=== PATIENT | female | born 1955 | race African-American/Black ===

== ENCOUNTER 2017-05-02 11:28 | Inpatient (IN) ==
[2017-05-02 12:37] LABS: Basophils % 0.2 %; Eosinophils % 0.2 %; Hematocrit 43.8 % (35.3-44.9); Hemoglobin 13.8 g/dL (11.5-15.4); Immature Granulocytes % 0.9 % (0-4); Lymphocytes # 3.1 K/mcL (0.6-4.6); Lymphocytes % 25.5 %; Mean Corpuscular HGB Conc 31.5 g/dL (31.6-35.5); Mean Corpuscular Hemoglobin 25.4 pg (28.0-33.3); Mean Corpuscular Volume 80.5 fL (83.0-100.0); Mean Platelet Volume 12.6 fL (9.4-12.4); Monocytes # 0.7 K/mcL (0.0-1.3); Monocytes % 5.9 %; Neutrophils # 8.1 K/mcL (1.6-8.9); Platelet Count 147 K/mcL (140-400); Red Blood Count 5.44 M/mcL (3.82-4.97); Red Cell Distribution Width 14.1 % (11.5-14.5); Segmented Neutrophils % 67.3 %
[2017-05-02 12:46] LABS: Alanine Aminotransferase 19 Units/L (0-55); Albumin 3.6 g/dL (3.5-5.0); Albumin/Globulin Ratio 0.9 (1.1-2.2); Alkaline Phosphatase 101 Units/L (38-126); Aspartate Amino Transferase 16 Units/L (5-34); BUN/Creatinine Ratio 13 (6-26); Bilirubin,Direct 0.2 mg/dL (0.0-0.5); Bilirubin,Indirect 0.2 mg/dL (0.0-1.2); Bilirubin,Total 0.4 mg/dL (0.2-1.2); Blood Urea Nitrogen 9 mg/dL (7-20); Calcium 9.5 mg/dL (8.6-10.8); Carbon Dioxide 25 mEq/L (19-29); Chloride 106 mEq/L (98-109); Globulin 3.9 g/dL (2.4-3.5); Glucose 110 mg/dL (70-99); Lipase 12 Units/L (8-78); Osmolality,Calculated 289 (280-300); Sodium 140 mEq/L (136-145); Total Protein 7.5 g/dL (6.0-8.3); eGFR For African Americans > 60 (> 60); eGFR For Non-African Americans > 60 (> 60)
[2017-05-02] MEDS ORDERED: 0.9 % Sodium Chloride 1,000 ML IVC ONE ×2 (12:54→15:52)
[2017-05-02] MEDS ORDERED: Ondansetron 4 MG/2 ML VIAL IVP ONE ×3 (12:54→17:53)
[2017-05-02] MEDS ORDERED: *HR* HYDROmorphone (PF) 1 MG/ML SYRINGE IVP ONE (12:54)
--- NOTE | 2017-05-02 13:03 | Emergency Department Note ---
Disposition Clinical Impression: NSTEMI (non-ST elevated myocardial infarction) Disposition: Admitted As Inpatient Condition: Good Referrals: Andriy Campos DO [Primary Care Provider] - Forms: ED Satisfaction Letter, Work/School Release Time of Disposition: 16:46 Abdominal Pain HPI - General Chief Complaint: ED Abdominal Pain Stated Complaint: cold symptoms, abd pain Time Seen by Provider: 05/02/17 12:50 Source: patient Nursing Notes Reviewed: Yes Vital Signs Reviewed: Yes - History of Present Illness HPI Narrative: History of present illness: History 11-year-old female states she was in urgent care yesterday for upper respiratory tract infection place and antibiotics. She presents with several days of right upper quadrant pain with nausea especially after eating. Patient has her gallbladder. She has had a hysterectomy but no other intra-abdominal surgeries. Denies fever, chills, shortness breath, chest pain, dysuria, contacts, exotic food or recent travel. Patient says the pains about 7 or 8 out of 10 crampy with sharp radiates to her posterior shoulder blade causing nausea. Prior to this when she is not experiences symptoms in the past. Patient denies any recent medication addition surgery changes other than the antibiotics Pain Scale: 10 - Related Data Home Medications Medication Instructions Recorded Confirmed ALPRAZolam [Xanax 0.5 MG Tablet] 0.5 mg PO TID PRN 08/08/15 03/18/17 Atorvastatin Calcium [Lipitor] 20 mg PO QPM 08/08/15 03/18/17 Cetirizine HCl [Zyrtec] 10 mg PO QPM 08/08/15 03/18/17 Duloxetine HCl [Cymbalta] 60 mg PO QPM 08/08/15 03/18/17 Fluticasone Propionate Nasal 50 mcg NS DAILY 08/08/15 03/18/17 [Flonase] Omeprazole [PriLOSEC] 20 mg PO QAM 08/08/15 03/18/17 SUMAtriptan succinate [Imitrex] 25 mg PO Q2H PRN 08/08/15 03/18/17 Previous Rx's Medication Instructions Recorded Folic Acid 1 mg PO DAILY #30 tablet 09/05/16 Fluticasone Propionate Nasal 50 mcg NS DAILY #1 bottle 02/16/17 [Flonase] Allergies Allergy/AdvReac Type Severity Reaction Status Date / Time cefdinir [From Omnicef] Allergy Hives Verified 05/02/17 11:51 Sulfa (Sulfonamide Allergy Hives Verified 05/02/17 11:51 Antibiotics) cephlasporin Allergy Confusion Uncoded 05/02/17 11:51 All systems ED: reviewed and negative except as stated. Gastrointestinal: Reports: abdominal pain, nausea Abdominal Pain PMH - Past Medical History Medical history: Reports: GERD, hyperlipidemia Female Surgical History: Reports: hysterectomy, sinus surgery TABBER history: Reports: non-contributory Psychiatric history: Reports: anxiety, depression, panic disorder - Social History Smoking status: Current every day smoker Alcohol use: Reports: none Drug use: Reports: none Physical Exam - General Limitations: no limitations General appearance: alert, in distress - Head Head exam: atraumatic, normocephalic - Eye Eye exam: Present: normal appearance, PERRL - ENT ENT exam: normal exam, normal oropharynx - Neck Neck exam: Present: normal inspection, full ROM - Chest Chest inspection: Present: normal inspection, symmetric chest wall rise - Respiratory Respiratory exam: Present: normal lung sounds bilaterally - Cardiovascular Cardiovascular exam: Present: regular rate, normal rhythm - Abdominal Exam Abdominal exam: Present: soft, tenderness, guarding. Absent: rebound Abdominal tenderness: Present: RUQ, moderate - Extremities Exam Extremities exam: Present: normal inspection, full ROM - Expanded Lower Extremity Exam Gait: observed and normal - Back Exam Back exam: Present: normal inspection, full ROM - Neurological Exam Neurological exam: Present: alert, oriented X3, CN II-XII intact - Psychiatric Psychiatric exam: Present: normal affect, normal mood - Skin Skin exam: Present: warm Course - Reevaluation(s) Reevaluation #1: Patient's physical exam shows a patient in moderate discomfort with voluntary guarding and tenderness in the right upper quadrant. The patient's symptoms H and gender biliary colic or cholecystitis also in the differential. Patient IV analgesics and antiemetics IV fluid bolus of 1 L screening labs including blood work and urinalysis and right upper quadrant ultrasound. Disposition pending Time: 13:03 Reevaluation #2: CBC chemistry panels within normal limits patient IV normal saline 1 L bolus and IV Zofran but still is feeling poorly with abdominal pain. Ultrasound was negative for acute process patient getting a noncontrast abdominal pelvic CT troponin and EKG with another liter fluid bolus. Disposition pending Time: 15:52 Reevaluation #3: 5 by lab of a chronically elevated troponin 0.17 which is concerning is the patient's kidney function is within normal limits history of smoking cholesterol and hypertension. Patient had stress test "years ago". She has had about 3 days of right-sided chest discomfort. EKG shows sinus rhythm with no acute ischemic changes. Patient will be started on an admitted for NSTEMI and protocol. Providing 35 minutes of critical care services to this patient. Admission pending Time: 16:45 Vital Signs Temperature 97.6 F 05/02/17 11:48 Pulse Rate 84 05/02/17 11:48 Respiratory Rate 18 05/02/17 11:48 Blood Pressure 108/73 05/02/17 11:48 O2 Sat by Pulse Oximetry 97 05/02/17 11:48 Temperature 97.6 F 05/02/17 11:48 Pulse Rate 84 05/02/17 11:48 Respiratory Rate 18 05/02/17 11:48 Blood Pressure 108/73 05/02/17 11:48 O2 Sat by Pulse Oximetry 97 05/02/17 11:48 Oxygen Delivery Oxygen Delivery Room Air Abdominal Pain - Medical Records Medical records reviewed: Yes I reviewed the patient's medical records. - Lab Data Lab results reviewed: Yes I reviewed the patient's lab results. Result diagrams: 05/02/17 12:14 05/02/17 12:14 Lab Results 05/02/17 05/02/17 05/02/17 Range/Units 12:14 12:14 12:14 WBC 12.1 H (4.3-11.1) K/mcL RBC 5.44 H (3.82-4.97) M/mcL Hgb 13.8 (11.5-15.4) g/dL Hct 43.8 (35.3-44.9) % MCV 80.5 L (83.0-100.0) fL MCH 25.4 L (28.0-33.3) pg MCHC 31.5 L (31.6-35.5) g/dL RDW 14.1 (11.5-14.5) % Plt Count 147 (140-400) K/mcL MPV 12.6 H (9.4-12.4) fL Immature Gran % 0.9 (0-4) % Seg Neutrophils % 67.3 % Lymphocytes % 25.5 % Monocytes % 5.9 % Eosinophils % 0.2 % Basophils % 0.2 % Neutrophils # 8.1 (1.6-8.9) K/mcL Lymphocytes # 3.1 (0.6-4.6) K/mcL Monocytes # 0.7 (0.0-1.3) K/mcL Eosinophils # 0.0 (0.0-0.6) K/mcL Basophils # 0.0 (0.0-0.2) K/mcL Sodium 140 (136-145) mEq/L Potassium 4.0 (3.5-4.5) mEq/L Chloride 106 (98-109) mEq/L Carbon Dioxide 25 (19-29) mEq/L BUN 9 (7-20) mg/dL Creatinine 0.71 (0.57-1.11) mg/dL Est GFR ( Amer) > 60 (> 60) Est GFR (Non-Af Amer) > 60 (> 60) BUN/Creatinine Ratio 13 (6-26) Glucose 110 H (70-99) mg/dL Calculated Osmolality 289 (280-300) Calcium 9.5 (8.6-10.8) mg/dL Total Bilirubin 0.4 (0.2-1.2) mg/dL Direct Bilirubin 0.2 (0.0-0.5) mg/dL Indirect Bilirubin 0.2 (0.0-1.2) mg/dL AST 16 (5-34) Units/L ALT 19 (0-55) Units/L Alkaline Phosphatase 101 (38-126) Units/L Troponin I 0.17 H* (0-0.03) ng/mL Serum Total Protein 7.5 (6.0-8.3) g/dL Albumin 3.6 (3.5-5.0) g/dL Globulin 3.9 H (2.4-3.5) g/dL Albumin/Globulin Ratio 0.9 L (1.1-2.2) Lipase 12 (8-78) Units/L Urine Color (Yellow) Urine Clarity (Clear) Urine pH (5.0-8.0) pH Units Ur Specific [place] (1.010-1.025) Urine Protein (Neg-Trace) mg/dL Urine Glucose (UA) (Normal) mg/dL Urine Ketones (Negative) mg/dL Urine Blood (Negative) Urine Nitrite (Negative) Urine Bilirubin (Negative) Urine Urobilinogen (Normal) mg/dL Ur Leukocyte Esterase (Negative) Urine Microscopic RBC (0-3) per hpf Urine Microscopic WBC (0-3) per hpf Ur Squamous Epith Cells (None-Few) per lpf Urine Bacteria (None-Few) per hpf Hyaline Casts (None-Few) per lpf Ur Culture Indicated? (NO) 05/02/17 Range/Units 13:18 WBC (4.3-11.1) K/mcL RBC (3.82-4.97) M/mcL Hgb (11.5-15.4) g/dL Hct (35.3-44.9) % MCV (83.0-100.0) fL MCH (28.0-33.3) pg MCHC (31.6-35.5) g/dL RDW (11.5-14.5) % Plt Count (140-400) K/mcL MPV (9.4-12.4) fL Immature Gran % (0-4) % Seg Neutrophils % % Lymphocytes % % Monocytes % % Eosinophils % % Basophils % % Neutrophils # (1.6-8.9) K/mcL Lymphocytes # (0.6-4.6) K/mcL Monocytes # (0.0-1.3) K/mcL Eosinophils # (0.0-0.6) K/mcL Basophils # (0.0-0.2) K/mcL Sodium (136-145) mEq/L Potassium (3.5-4.5) mEq/L Chloride (98-109) mEq/L Carbon Dioxide (19-29) mEq/L BUN (7-20) mg/dL Creatinine (0.57-1.11) mg/dL Est GFR ( Amer) (> 60) Est GFR (Non-Af Amer) (> 60) BUN/Creatinine Ratio (6-26) Glucose (70-99) mg/dL Calculated Osmolality (280-300) Calcium (8.6-10.8) mg/dL Total Bilirubin (0.2-1.2) mg/dL Direct Bilirubin (0.0-0.5) mg/dL Indirect Bilirubin (0.0-1.2) mg/dL AST (5-34) Units/L ALT (0-55) Units/L Alkaline Phosphatase (38-126) Units/L Troponin I (0-0.03) ng/mL Serum Total Protein (6.0-8.3) g/dL Albumin (3.5-5.0) g/dL Globulin (2.4-3.5) g/dL Albumin/Globulin Ratio (1.1-2.2) Lipase (8-78) Units/L Urine Color Yellow (Yellow) Urine Clarity Clear (Clear) Urine pH 6.5 (5.0-8.0) pH Units Ur Specific [place] 1.024 (1.010-1.025) Urine Protein Trace (Neg-Trace) mg/dL Urine Glucose (UA) Normal (Normal) mg/dL Urine Ketones Negative (Negative) mg/dL Urine Blood Negative (Negative) Urine Nitrite Negative (Negative) Urine Bilirubin Negative (Negative) Urine Urobilinogen Normal (Normal) mg/dL Ur Leukocyte Esterase Negative (Negative) Urine Microscopic RBC 0-3 (0-3) per hpf Urine Microscopic WBC 0-3 (0-3) per hpf Ur Squamous Epith Cells Many H (None-Few) per lpf Urine Bacteria None Seen (None-Few) per hpf Hyaline Casts None Seen (None-Few) per lpf Ur Culture Indicated? NO (NO) - Radiology Data Radiology results reviewed: Yes I reviewed the patient's radiology results. - EKG Data EKG attestation: Yes I reviewed and interpreted this EKG. EKG results narrative: Twelve-lead EKG interpreted without cardiology shows: Sinus rhythm at 64 bpm, normal [place] QRS and QT corrected. No acute ischemic changes noted. No acute changes when compared to prior EKG dated 08/08/2015
[2017-05-02 13:22] LABS: Bilirubin,Urine Negative (Negative); Blood,Urine Negative (Negative); Clarity,Urine Clear (Clear); Color,Urine Yellow (Yellow); Glucose,Urine (UA) Normal (Normal); Ketones,Urine Negative (Negative); Leukocyte Esterase,Urine Negative (Negative); Nitrite,Urine Negative (Negative); PH,Urine 6.5 pH Units (5.0-8.0); Protein,Urine Trace mg/dL (Neg-Trace); Specific Gravity,Urine 1.024 (1.010-1.025); Urobilinogen,Urine Normal (Normal)
[2017-05-02 13:24] LABS: Bacteria,Urine None Seen per hpf (None-Few); Hyaline Casts,Urine None Seen per lpf (None-Few); RBC,Urine 0-3 per hpf (0-3); Squamous Epithelial Cell,Urine Many per lpf (None-Few); WBC,Urine 0-3 per hpf (0-3)
[2017-05-02] MEDS ORDERED: Aspirin 81 MG TAB.CHEW PO ONE (16:43)
[2017-05-02] MEDS ORDERED: *HR* Heparin 5,000 UNIT/ML VIAL IVP ONE (16:44)
[2017-05-02] MEDS ORDERED: *HR* Heparin 5,000 UNIT/ML VIAL IVP PRN ×2 (16:44)
[2017-05-02] MEDS: Heparin 25,000 UNIT/500 ML D5W 25,000 UNIT/500 ML BAG IVC SCH (17:02)
[2017-05-02 17:07] LABS: INR 1.1; Prothrombin Time 11.5 Seconds (9.4-12.1)
[2017-05-02 17:08] LABS: Mean Corpuscular HGB Conc 30.5 g/dL (31.6-35.5); Mean Corpuscular Hemoglobin 24.7 pg (28.0-33.3); Mean Corpuscular Volume 81.1 fL (83.0-100.0); Mean Platelet Volume 12.5 fL (9.4-12.4); Platelet Count 132 K/mcL (140-400); Red Blood Count 4.93 M/mcL (3.82-4.97); Red Cell Distribution Width 14.1 % (11.5-14.5)
[2017-05-02 17:09] LABS: Hemoglobin 12.2 g/dL (11.5-15.4)
[2017-05-02] MEDS ORDERED: Naloxone 0.4 MG/ML INJ IVP PRN (18:48)
[2017-05-02] MEDS ORDERED: *HR* Morphine 2 MG/ML SYRINGE IVP PRN (18:48)
--- NOTE | 2017-05-02 19:21 | Internal Med History&Physical ---
<Martínez Garnett - Last Filed: 05/02/17 19:18> Date of Encounter: 05/02/17 Time of Encounter: 19:18 Assessment and Plan (1) NSTEMI (non-ST elevated myocardial infarction) Current visit: Yes Status: Acute Denies any chest pain. Continues to report right upper quadrant pain with radiation to the right shoulder. Cardiology has been consulted with recommendations to start patient on heparin drip. She remains in normal sinus rhythm. She remains hemodynamically stable. Upon my assessment she has RRR, S1 , S2 no murmurs rubs or gallops. She is in no obvious respiratory distress and resting comfortably in bed. Serial troponins Consult cardiology-ED physician spoke with cardiology who will see patient tomorrow Continue heparin drip as recommended per cardiology-TTE Start aspirin 81 mg tomorrow patient received aspirin 325 in ED Increase atorvastatin to 80 mg first dose tonight Continuous telemetry, continuous O2 monitoring (2) Obesity, morbid, BMI 40.0-49.9 Current visit: Yes Status: Chronic Discussed lifestyle modifications including diet and exercise (3) DVT prophylaxis Current visit: Yes Status: Acute On heparin drip Internal Medicine - H&P: HPI Chief complaint: Robert, nausea, vomiting Admitted From: Home Plans for Post Hospital Care: Home History of present illness: Ms. Weaver is a 61 year old female with PMH of GERD, HLD and prediabetes. Originally presented with right upper quadrant abdominal pain and nausea for the last several days. She reports pain 7/10 in intensity gets worse with eating. She describes the pain as sharp with radiation to posterior shoulder blade. Additionally, she reports that she vomited a few times this afternoon. She denies taking anything for the discomfort has had no relief of symptoms. She does have her gallbladder. She denies any fever, chills, shortness of breath, dysuria, chest pain. Ultrasound of gallbladder completed an EGD and found to be unremarkable. Chest x-ray no acute process, troponin elevated to 0.17. Past Med Surg Social Fam HX - Past Medical History Medical history: GERD, hyperlipidemia Psychiatric history: anxiety, depression, panic disorder - Past Surgical History Surgical History: breast surgery, hysterectomy - Social History Smoking Status: Current every day smoker Smokeless Tobacco Status: No Alcohol use: none Drug use: none - Family History Grandmother Living Status: Hx Family Cardiac Disorders: Yes (SC) Hx Family Endocrine Disorder: Yes (DM) Internal Medicine - H&P: Meds ALPRAZolam [Xanax 0.5 MG Tablet] 0.5 mg PO TID PRN 08/08/15 [History] Atorvastatin Calcium [Lipitor] 20 mg PO QPM 08/08/15 [History] Cetirizine HCl [Zyrtec] 10 mg PO QPM 08/08/15 [History] Duloxetine HCl [Cymbalta] 60 mg PO QPM 08/08/15 [History] Fluticasone Propionate Nasal [Flonase] 50 mcg NS DAILY 08/08/15 [History] Omeprazole [PriLOSEC] 20 mg PO QAM 08/08/15 [History] SUMAtriptan succinate [Imitrex] 25 mg PO Q2H PRN 08/08/15 [History] Folic Acid 1 mg PO DAILY #30 tablet 09/05/16 [Rx] Fluticasone Propionate Nasal [Flonase] 50 mcg NS DAILY #1 bottle 02/16/17 [Rx] 3 Allergy/AdvReac Type Severity Reaction Status Date / Time cefdinir [From Omnicef] Allergy Hives Verified 05/02/17 11:51 Sulfa (Sulfonamide Allergy Hives Verified 05/02/17 11:51 Antibiotics) cephlasporin Allergy Confusion Uncoded 05/02/17 11:51 All Systems PM: A 10-system review of systems was performed and is negative for pertinent findings except as documented above in the HPI. - Constitutional Constitutional: no chills, no fever(s), no night sweats - EENT Eyes: no change in vision, no discharge, no pain, no photophobia Ears: no ear discharge, no ear pain, no tinnitus Nose, mouth and throat: no dysphagia, no nasal discharge, no neck pain, no sore throat - Cardiovascular Cardiovascular ROS IM: no chest pain, no diaphoresis, no dyspnea, no lightheadedness, no palpitations, no syncope - Respiratory Respiratory: no cough, no dyspnea, no wheezing, no excessive phlegm production - Gastrointestinal Gastrointestinal: abdominal pain (RUQ), no diarrhea, no hematemesis, no hematochezia, no melena, no nausea, no vomiting - Genitourinary Genitourinary: no change in urinary stream, no dysuria, no flank pain, no hematuria - Musculoskeletal Musculoskeletal ROS IM: no numbness, no tingling - Integumentary Integumentary IM: no rash, no unusual bruising - Neurological Neurological ROS: no confusion, no convulsions, no focal weakness, no numbness, no tingling, no tremor(s) - Hematologic/Lymphatic Hematologic/Lymphatic: no easy bruising - Constitutional Vitals: Temp Pulse Resp BP Pulse Ox 97.6 F 66 18 119/66 99 05/02/17 11:48 05/02/17 17:07 05/02/17 17:07 05/02/17 17:07 05/02/17 17:07 General appearance: Present: cooperative, A&O X 3, no acute distress, answers questions appropriately - Head Head exam: Present: atraumatic, normocephalic - Eye Eye exam: Present: PERRL, conjuntiva pink, sclera anicteric Pupils: Present: PERRL - Neck Neck exam general surgery: Present: supple, trachea midline. Absent: lymphadenopathy - Respiratory Respiratory exam: Present: CTAB. Absent: accessory muscle use, rales, rhonchi, wheezes - Cardiovascular Cardiovascular exam: Present: RRR, +S1, +S2. Absent: diastolic murmur, gallop, rubs, systolic murmur - GI/Abdominal GI/Abdominal exam: Present: firm, guarding (voluntary), normal bowel sounds, soft, tenderness (RUQ). Absent: distended, rebound - Extremities Exam Extremities exam: Present: warm, radial pulses palpable and symmetrical. Absent : calf tenderness, cyanotic, pedal edema - Neurological Exam Neurological exam: Present: CN II-XII intact, oriented X3, no focal deficits. Absent: pronater drift, facial droop, speech deficit - Skin Skin exam: Present: dry, intact Internal Med - H&P Results - Labs CBC & Chem 7: 05/02/17 16:53 05/02/17 12:14 Labs: Short CBC 05/02/17 05/02/17 Range/Units 12:14 16:53 WBC 12.1 H 10.1 (4.3-11.1) K/mcL Hgb 13.8 12.2 D (11.5-15.4) g/dL Hct 43.8 40.0 (35.3-44.9) % Plt Count 147 132 L (140-400) K/mcL Neutrophils # 8.1 (1.6-8.9) K/mcL BMP 05/02/17 12:14 Sodium 140 Potassium 4.0 Chloride 106 Carbon Dioxide 25 BUN 9 Creatinine 0.71 Glucose 110 H Calcium 9.5 Cardiac Enzymes 05/02/17 Range/Units 12:14 Troponin I 0.17 H* (0-0.03) ng/mL Liver Function 05/02/17 Range/Units 12:14 Total Bilirubin 0.4 (0.2-1.2) mg/dL Direct Bilirubin 0.2 (0.0-0.5) mg/dL AST 16 (5-34) Units/L ALT 19 (0-55) Units/L Alkaline Phosphatase 101 (38-126) Units/L Albumin 3.6 (3.5-5.0) g/dL Urine 05/02/17 Range/Units 13:18 Urine Color Yellow (Yellow) Urine Clarity Clear (Clear) Urine pH 6.5 (5.0-8.0) pH Units Ur Specific [place] 1.024 (1.010-1.025) Urine Protein Trace (Neg-Trace) mg/dL Urine Glucose (UA) Normal (Normal) mg/dL - EKG Data -: EKG Interpreted by Myself EKG shows normal: sinus rhythm Rate: normal - EKG Data Prior EKG available for review: yes When compared to previous EKG: there is no significant change EKG comments: Normal sinus rhythm with flattening of T waves in V2 and V3 05/02/17 19:38 - Impressions ITS Impressions Chest X-Ray 05/02/17 11:57 IMPRESSION: 1. No active pulmonary disease. D/ / Cruz Teague MD / Cruz Teague MD Interpreting Provider: Cruz Teague MD Gallbladder Ultrasound 05/02/17 12:55 IMPRESSION: Unremarkable right upper quadrant ultrasound. D/ / Sergio Weaver MD / Sergio Weaver MD Interpreting Provider: Sergio Weaver MD - VTE Reasons for not Prescribing Prophylaxis: Not indicated-Anticoagulated or INR therapeutic <Bandar Banda - Last Filed: 05/03/17 03:03> Date of Encounter: 05/02/17 Internal Medicine - H&P: HPI History of present illness: Ms. Weaver is a 61 year old female All Systems PM: A 10-system review of systems was performed and is negative for pertinent findings except as documented above in the HPI. - Constitutional Vitals: Temp Pulse Resp BP Pulse Ox 97.8 F 77 20 127/77 97 05/03/17 00:00 05/03/17 00:00 05/03/17 00:00 05/03/17 00:00 05/03/17 00:00 Internal Med - H&P Results - Labs CBC & Chem 7: 05/03/17 00:50 05/03/17 00:50 Labs: Short CBC 05/03/17 Range/Units 00:50 WBC 8.5 (4.3-11.1) K/mcL Hgb 11.6 (11.5-15.4) g/dL Hct 38.4 (35.3-44.9) % Plt Count 120 L (140-400) K/mcL BMP 05/03/17 00:50 Sodium 141 Potassium 4.0 Chloride 109 Carbon Dioxide 24 BUN 9 Creatinine 0.74 Glucose 98 Calcium 8.6 Cardiac Enzymes 05/02/17 05/03/17 Range/Units 19:11 00:50 Troponin I 0.00 0.00 (0-0.03) ng/mL - Attending Attestation I have personally performed a face to face evaluation on this patient. I have reviewed and agree with the care plan provided by JANEY Garnett. History and Exam by me shows: Ms. Weaver is a 61 year old female with PMH of GERD, HLD and prediabetes. Originally presented with right upper quadrant abdominal pain and nausea for the last several days. She reports pain 7/10 in intensity gets worse with eating. Her initial troponin was significantly elevated 0.17..She denied any CP. Gen: Mild distress with epigastric pain Abd: Soft, mild tender discomfort over epigastric region Heart: S1 S2 + RRR A/p 1. Acute initial NSTEMI 2. Atypical CP Her troponin started trending down initial elevation could be demand ischemia cont Heparin gtt for now.. Card consulted cont ASA 3. Epigastric pain Mostly due to gastric ulcer normal lipase IV fluids IV Protonix 40mg BID If symptoms persist may need EGD
[2017-05-02] MEDS ORDERED: 0.9 % Sodium Chloride 1,000 ML IVC SCH (21:00)
[2017-05-02] MEDS ORDERED: Pantoprazole 40 MG VIAL IVP ONE (21:01)
[2017-05-02] MEDS ORDERED: GI Cocktail 40 ML EACH PO ONE (21:01)
[2017-05-02] MEDS: *HR* Promethazine 25 MG/ML VIAL IVP PRN (21:16)
[2017-05-02 23:33] LABS: Activated Partial Thrombo Time 112.2 Seconds (26.0-36.0)
[2017-05-02] MEDS: *HR* HYDROcodone/Acet 5/325 mg TABLET PO PRN (23:42)
[2017-05-02 23:49] LABS: Heparin anti-factor XA UFH 0.6 IU/mL (0.30-0.70)
[2017-05-03 01:38] LABS: Hematocrit 38.4 % (35.3-44.9); Hemoglobin 11.6 g/dL (11.5-15.4); Mean Corpuscular HGB Conc 30.2 g/dL (31.6-35.5); Mean Corpuscular Hemoglobin 24.7 pg (28.0-33.3); Mean Corpuscular Volume 81.9 fL (83.0-100.0); Mean Platelet Volume 13.2 fL (9.4-12.4); Platelet Count 120 K/mcL (140-400); Red Blood Count 4.69 M/mcL (3.82-4.97); Red Cell Distribution Width 14.3 % (11.5-14.5)
[2017-05-03 01:46] LABS: Hemoglobin A1C 5.6 %
[2017-05-03 01:53] LABS: BUN/Creatinine Ratio 12 (6-26); Blood Urea Nitrogen 9 mg/dL (7-20); Calcium 8.6 mg/dL (8.6-10.8); Carbon Dioxide 24 mEq/L (19-29); Chloride 109 mEq/L (98-109); Chol/HDL Ratio 4.4 (0-4.9); Cholesterol 211 mg/dL (< 200); Glucose 98 mg/dL (70-99); HDL Cholesterol 48 mg/dL (40-59); LDL Cholesterol,Calculated 130 mg/dL (0-99); Osmolality,Calculated 291 (280-300); Sodium 141 mEq/L (136-145); Triglycerides 164 mg/dL (< 150); eGFR For African Americans > 60 (> 60); eGFR For Non-African Americans > 60 (> 60)
[2017-05-03] MEDS: SUMAtriptan succinate 25 MG TABLET PO PRN ×3 (04:11→22:13)
[2017-05-03] MEDS: *HR* Promethazine 25 MG/ML VIAL IVP PRN ×3 (04:12→22:13)
[2017-05-03] MEDS: Ondansetron 4 MG/2 ML VIAL IVP PRN ×2 (07:03→17:05)
[2017-05-03] MEDS: *HR* HYDROcodone/Acet 5/325 mg TABLET PO PRN ×2 (07:03→17:05)
--- NOTE | 2017-05-03 08:32 | Cardiology Consult Note ---
Date of Encounter: 05/03/17 Time of Encounter: 08:28 Assessment and Plan (1) Elevated troponin Current Visit: Yes Status: Acute Troponin elevated at 0.17, 0.00, 0.00. EKG with no acute changes. Symptoms concerning for angina with her history of DM. Cardiac risk factors include DM, HTN, and tobacco use. Agree with Heparin GTT. Asa, statin, and bb. TTE completed shows LVEF 55%. Normal LV chamber size, wall thickness and function. Normal left ventricular diastolic function. Normal right ventricular structure and function.Mild tricuspid regurgitation. Mild pulmonary hypertension. Possible LHC friday unless changes over the weekend. (2) Chest pain Current Visit: Yes Status: Acute See plan above. Qualifiers: Chest pain type: unspecified Qualified Code(s): R07.9 - Chest pain, unspecified Discussion w patient/family: The assessment and plan as outlined above was discussed with the patient and/or family members who expressed understanding and agreement. All questions were answered. Thank you for involving us in the care of your patient. Please call with any questions. History of Present Illness Consult date: 05/03/17 Requesting physician: Bandar Banda Consult reason: chest pain elevated troponin Chief complaint: abdominal pain radiating to her chest History of present illness: Ms. Weaver is a 61 year old female with a past medical history of diabetes type II , HTN, and tobacco use who presented with RLQ abdominal pain radiating to her midepigastric area to her left lower chest. She associates her discomfort with nausea and inability to eat. Symptoms started two weeks ago as a sinus infection. SHe started having an upset stomach two days later that she was felt from mucous drainage. She admits to coughing up thick frothy sputum. She denies chest pain or palpitations. Her initial work-up revealed elevated troponin at 0.17 and then 0.00. EKG showed SR with no acute ST changes. US gallbladder was negative. Cardiology consulted for elevated troponin. She denies history of CAD or previous LHC. Stress test in 2013 was negative. Past Med Surg Social Fam HX - Past Medical History Attestation: Yes The following information was validated with the patient. Source: patient Medical history: arthritis, diabetes, GERD, hyperlipidemia Psychiatric history: anxiety, depression, panic disorder - Past Surgical History Surgical History: breast surgery, hysterectomy - Social History Smoking Status: Current every day smoker Packs per day: 1/2 pack Smokeless Tobacco Status: No Alcohol use: none Drug use: none - Family History Grandmother Living Status: Age at : 70 Cause of : Heart attack Hx Family Cardiac Disorders: Yes ([place]) Hx Family Endocrine Disorder: Yes (DM) Medications and Allergies ALPRAZolam [Xanax 0.5 MG Tablet] 0.5 mg PO TID PRN 08/08/15 [History] Atorvastatin Calcium [Lipitor] 20 mg PO QPM 08/08/15 [History] Cetirizine HCl [Zyrtec] 10 mg PO QPM 08/08/15 [History] Duloxetine HCl [Cymbalta] 60 mg PO QPM 08/08/15 [History] Fluticasone Propionate Nasal [Flonase] 50 mcg NS DAILY 08/08/15 [History] Omeprazole [PriLOSEC] 20 mg PO QAM 08/08/15 [History] SUMAtriptan succinate [Imitrex] 25 mg PO Q2H PRN 08/08/15 [History] Folic Acid 1 mg PO DAILY #30 tablet 09/05/16 [Rx] Fluticasone Propionate Nasal [Flonase] 50 mcg NS DAILY #1 bottle 02/16/17 [Rx] 3 Allergy/AdvReac Type Severity Reaction Status Date / Time cefdinir [From Omnicef] Allergy Hives Verified 05/02/17 11:51 Sulfa (Sulfonamide Allergy Hives Verified 05/02/17 11:51 Antibiotics) cephlasporin Allergy Confusion Uncoded 05/02/17 11:51 All Systems Review: A 10-system review of systems was performed and is negative for pertinent findings except as documented above in the HPI. Physical Examination Vital Signs, Last 4 Hours Temp Pulse Resp BP Pulse Ox 05/03/17 06:58 97.6 F 61 18 108/68 91 05/03/17 05:00 97.8 F 64 20 95/59 94 General: Conversant, No Apparent Distress HEENT: Atraumatic, Normocephaly, Mucus Membranes Moist Neck: No JVD, Normal carotid pulses Cardiac: Reg Rate and Rhythm, Normal S1 and S2, No Murmur Lungs: Normal Breath Sounds, No Wheeze, Rales, Rhonchi Neuro: Alert and responsive, No focal deficits noted Abdomen: Soft, Non-Tender Skin: No rashes noted on visualized skin Musculoskeletal: No Chest Wall Tenderness Extremities: No Clubbing, No Cyanosis, No Edema, Normal Pulses Results 05/03/17 00:50 05/03/17 00:50 Lab Results 05/02/17 05/02/17 05/03/17 19:11 23:02 00:50 WBC Hgb Hct Plt Count APTT 112.2 H* D Sodium Potassium Chloride Carbon Dioxide BUN Creatinine Glucose Calcium Troponin I 0.00 0.00 05/03/17 05/03/17 05/03/17 00:50 00:50 07:16 WBC 8.5 Hgb 11.6 Hct 38.4 Plt Count 120 L APTT Sodium 141 Potassium 4.0 Chloride 109 Carbon Dioxide 24 BUN 9 Creatinine 0.74 Glucose 98 Calcium 8.6 Troponin I 0.01 05/03/17 07:16 WBC Hgb Hct Plt Count APTT 87.2 H Sodium Potassium Chloride Carbon Dioxide BUN Creatinine Glucose Calcium Troponin I - Imaging and Cardiology Echo: pending - EKG Interpretation EKG results cardiology: personally reviewed Consult Discharge Plan - Plan Referrals: Andriy Campos DO [Primary Care Provider] -
[2017-05-03] MEDS: Pantoprazole 40 MG VIAL IVP SCH ×2 (10:43→17:06)
[2017-05-03] MEDS: Aspirin 81 MG TAB.CHEW PO SCH (10:44)
[2017-05-03] MEDS: Folic Acid 1 MG TABLET PO SCH (10:44)
[2017-05-03] MEDS: Heparin 25,000 UNIT/500 ML D5W 25,000 UNIT/500 ML BAG IVC SCH (14:11)
--- NOTE | 2017-05-03 15:16 | Event Note ---
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 Please consider this an attestation to that consultation. I have personally performed a face to face evaluation on this patient. I have reviewed and agree with the care plan. History and Exam by me shows: 61-year-old female with multiple risk factors for CAD presents with abdominal discomfort/chest discomfort. Mild troponin elevation noted on admission. TTE demonstrates normal LV function, no significant valve disease. Symptoms, troponin elevation remaining of unclear significance. Given risk factors for CAD, we discussed the risks, benefits, and alternatives to cardiac catheterization. Patient is agreeable to proceed. Continue aspirin, statin, heparin drip for now. Okay to DC heparin after 24-48 hours. Beta heydi held due to relative hypotension. We will monitor. We will plan for Friday. Thanks, Shahram Mauro DO, FACC
[2017-05-03] MEDS: Loratadine 10 MG TABLET PO SCH (17:05)
[2017-05-03] MEDS: Acetaminophen/Butalbital/CaffeineTABLET PO PRN (17:06)
--- NOTE | 2017-05-03 17:20 | Internal Med Progress Note ---
Date of Encounter: 05/03/17 Time of Encounter: 10:10 - Assessment and plan (1) NSTEMI (non-ST elevated myocardial infarction) Current Visit: Yes Status: Acute Assessment and plan: Patient has been evaluated by cardiology. Recommend to continue IV heparin drip for 24-48 hours. Plan for cardiac catheterization on Friday. Moderate risk for complications. (2) Abdominal pain Current Visit: Yes Status: Acute Assessment and plan: Continue supportive care with Protonix. Could be related to underlying gastritis. Qualifiers: Abdominal location: epigastric Qualified Code(s): R10.13 - Epigastric pain (3) Headache Current Visit: Yes Status: Acute Assessment and plan: Will treat symptomatically. Patient is on Imitrex, Phenergan. We will add Fioricet as needed. If no improvement, consider Solu-Medrol and magnesium. Qualifiers: Headache type: tension-type Headache chronicity pattern: acute headache Intractability: intractable Qualified Code(s): G44.201 - Tension-type headache , unspecified, intractable (4) Obesity, morbid, BMI 40.0-49.9 Current Visit: Yes Status: Chronic (5) Hyperlipidemia Current Visit: Yes Status: Acute Assessment and plan: On statin. Qualifiers: Hyperlipidemia type: mixed hyperlipidemia Qualified Code(s): E78.2 - Mixed hyperlipidemia (6) Essential hypertension Current Visit: Yes Status: Chronic Assessment and plan: Controlled at this time with intermittent elevation. Not on any medications. We will await cardiac catheterization and start medications depending on findings. - Subjective Interval history: Patient is awake and alert. Complains of headache that is much more severe than her usual headaches. Denies any chest pain at this time. No nausea or vomiting. No shortness of breath. - Constitutional Vitals: Temp Pulse Resp BP Pulse Ox 98.0 F 86 17 110/51 96 05/03/17 16:00 05/03/17 16:00 05/03/17 16:00 05/03/17 16:00 05/03/17 16:00 General appearance: Present: cooperative, mild distress, A&O X 3, answers questions appropriately - Neck Neck exam general surgery: Present: supple, trachea midline. Absent: lymphadenopathy - Respiratory Respiratory exam: Present: CTAB. Absent: accessory muscle use, rales, rhonchi, wheezes - Cardiovascular Cardiovascular exam: Present: RRR, +S1, +S2. Absent: diastolic murmur, gallop, rubs, systolic murmur - GI/Abdominal GI/Abdominal exam: Present: normal bowel sounds, soft, no peritoneal signs. Absent: distended, tenderness - Extremities Exam Extremities exam: Present: warm, radial pulses palpable and symmetrical. Absent : calf tenderness, cyanotic, pedal edema - Neurological Exam Neurological exam: Present: alert, oriented X3, no focal deficits. Absent: facial droop, speech deficit - Skin Skin exam: Present: dry, intact Internal Medicine: Result - Labs CBC & Chem 7: 05/03/17 00:50 05/03/17 00:50 Labs: Short CBC 05/03/17 Range/Units 00:50 WBC 8.5 (4.3-11.1) K/mcL Hgb 11.6 (11.5-15.4) g/dL Hct 38.4 (35.3-44.9) % Plt Count 120 L (140-400) K/mcL BMP 05/03/17 00:50 Sodium 141 Potassium 4.0 Chloride 109 Carbon Dioxide 24 BUN 9 Creatinine 0.74 Glucose 98 Calcium 8.6 Cardiac Enzymes 05/02/17 05/03/17 05/03/17 Range/Units 19:11 00:50 07:16 Troponin I 0.00 0.00 0.01 (0-0.03) ng/mL - ABG Interpretation ABG results: PT/INR, D-dimer PT 11.5 Seconds (9.4-12.1) 05/02/17 16:53 - VTE Reasons for not Prescribing Prophylaxis: Not indicated-Anticoagulated or INR therapeutic Consult Discharge Plan - Plan Referrals: Andriy Campos DO [Primary Care Provider] -
[2017-05-03 19:08] LABS: Adenovirus Not Detected (Not Detect); Bordetella Pertussis Not Detected (Not Detect); Chlamydophila pneumoniae Not Detected (Not Detect); Coronavirus 229E Not Detected (Not Detect); Coronavirus HKU1 Not Detected (Not Detect); Coronavirus NL63 Not Detected (Not Detect); Coronavirus OC43 Not Detected (Not Detect); Human Metapneumovirus Not Detected (Not Detect); Human Rhinovirus/Enterovirus Not Detected (Not Detect); Influenza A Subtype 2009 H1 Not Detected (Not Detect); Influenza A Untypeable Not Detected (Not Detect); Influenza B Not Detected (Not Detect); Mycoplasma pneumoniae Not Detected (Not Detect); Parainfluenza Virus 1 Not Detected (Not Detect); Parainfluenza Virus 2 Not Detected (Not Detect); Parainfluenza Virus 3 Not Detected (Not Detect); Parainfluenza Virus 4 Not Detected (Not Detect); Respiratory Syncytial Virus Not Detected (Not Detect)
[2017-05-04] MEDS: *HR* HYDROcodone/Acet 5/325 mg TABLET PO PRN ×2 (03:23→18:13)
[2017-05-04] MEDS: Pantoprazole 40 MG VIAL IVP SCH ×2 (04:55→18:08)
[2017-05-04] MEDS: Folic Acid 1 MG TABLET PO SCH (07:45)
[2017-05-04] MEDS: Aspirin 81 MG TAB.CHEW PO SCH (07:45)
[2017-05-04] MEDS: Acetaminophen/Butalbital/CaffeineTABLET PO PRN (07:45)
--- NOTE | 2017-05-04 07:53 | Cardiology Progress Note ---
Date of Encounter: 05/04/17 Time of Encounter: 07:50 Assessment and Plan (1) Elevated troponin Current Visit: Yes Status: Acute Per Cardiology: Troponin initially elevated at 0.17, then negative x 3. 0.00, 0.00. EKG with no acute changes. Symptoms concerning for angina with her history of DM. Cardiac risk factors include DM, HTN, and smoking. On Heparin gtt-- discussed with Dr. Mauro, will dc IV Hep. gtt, on asa, statin, and bb. TTE completed shows LVEF 55%. Mild tricuspid regurgitation. Mild pulmonary hypertension. CP free. Plan for [facility] tomorrow. All questions answered. Discussion w patient/family: The assessment and plan as outlined above was discussed with the patient and/or family members who expressed understanding and agreement. All questions were answered. Thank you for involving us in the care of your patient. Please call with any questions. Subjective Principal diagnosis: NSTEMI Interval history: Patient denies any chest pain, shortness of breath, palpitations. Denies any new concerns over night. Objective Vital Signs, Last 4 Hours Temp Pulse Resp BP Pulse Ox 05/04/17 07:50 97.4 F L 60 18 117/34 97 05/04/17 05:00 97.8 F 74 20 95/58 98 General: Conversant, No Apparent Distress HEENT: Atraumatic, Normocephaly, Mucus Membranes Moist Neck: No JVD, Normal carotid pulses Cardiac: Reg Rate and Rhythm, Normal S1 and S2, No Murmur Lungs: Normal Breath Sounds, No Wheeze, Rales, Rhonchi Neuro: Alert and responsive, No focal deficits noted Abdomen: Soft, Non-Tender Skin: No rashes noted on visualized skin Musculoskeletal: No Chest Wall Tenderness Extremities: No Clubbing, No Cyanosis, No Edema, Normal Pulses Results 05/03/17 00:50 05/03/17 00:50 Lab Results Laboratory Tests 05/02/17 05/02/17 05/03/17 12:14 19:11 00:50 Troponin I 0.17 H* 0.00 0.00 05/03/17 07:16 Troponin I 0.01 ITS Impressions Chest X-Ray 05/02/17 11:57 IMPRESSION: 1. No active pulmonary disease. D/ / Curz Teague MD / Cruz Teague MD Interpreting Provider: Cruz Teague MD Gallbladder Ultrasound 05/02/17 12:55 IMPRESSION: Unremarkable right upper quadrant ultrasound. D/ / Sergio Weaver MD / Sergio Weaver MD Interpreting Provider: Sergio Weaver MD Echocardiogram 05/02/17 18:47 Impressions: LVEF 55%. Normal LV chamber size, wall thickness and function. Normal left ventricular diastolic function. Normal right ventricular structure and function. Mild tricuspid regurgitation. Mild pulmonary hypertension. Estimated RVSP is 43 mmHg. Left Ventricular Wall Motion: Rest Echo Findings All wall segments showed normal motion. Findings: Study Quality * Technically adequate exam. ECG Findings * Normal sinus rhythm. Left Ventricle * LVEF 55%. * Normal LV chamber size, wall thickness and function. * Normal left ventricular diastolic function. Right Ventricle * Normal right ventricular structure and function. Left Atrium * Mild to moderately dilated left atrium. Right Atrium * Mildly dilated right atrium. Aortic Valve * Trileaflet aortic valve with normal function. * No aortic regurgitation. * No aortic stenosis. Mitral Valve * Normal mitral valve structure and function. * No mitral stenosis. * Trace mitral regurgitation. Tricuspid Valve * Normal tricuspid valve structure. * Mild tricuspid regurgitation. * Mild pulmonary hypertension. * Estimated RVSP is 43 mmHg. * Estimated RA pressure is 5 mmHg. Pulmonic Valve * Normal pulmonic valve structure and function. * No pulmonic regurgitation. Aorta * Normally sized aortic root. Pericardium * The pericardium appears normal. IVC * Normal IVC dimensions and inspiratory collapse. Pulmonary Artery * Normal visualized portions of the main pulmonary artery. Interatrial Septum * No evidence of PFO by color Doppler. Active Medications Acetaminophen/Butalbital/Caffeine (Fioricet) 1 each PO Q6HR PRN; Protocol PRN Reason: Headache Stop: 11/02/17 14:07 Last Admin: 05/04/17 07:45 Dose: 1 each Hydrocodone Bitart/Acetaminophen ([place] 5-325 Mg) 1 tab PO Q6HR PRN PRN Reason: Moderate Pain Stop: 11/01/17 22:54 Last Admin: 05/04/17 03:23 Dose: 1 tab Alprazolam (Xanax) 0.5 mg PO TID PRN; Protocol PRN Reason: Anxiety Stop: 11/01/17 18:53 Aspirin (Aspirin) 81 mg PO DAILY MELI Stop: 11/02/17 09:01 Last Admin: 05/04/17 07:45 Dose: 81 mg Atorvastatin Calcium (Lipitor) 80 mg PO HS EMLI Stop: 11/01/17 21:01 Last Admin: 05/03/17 22:13 Dose: 80 mg Diphenhydramine HCl (Benadryl) 25 mg PO Q8HR PRN PRN Reason: Allergy Symptoms Stop: 11/02/17 11:39 Last Admin: 05/03/17 12:37 Dose: 25 mg Duloxetine HCl (Cymbalta) 60 mg PO QPM MELI Stop: 11/02/17 18:01 Last Admin: 05/03/17 17:05 Dose: 60 mg Folic Acid (Folic Acid) 1 mg PO DAILY [facility] Stop: 11/02/17 09:01 Last Admin: 05/04/17 07:45 Dose: 1 mg Heparin Sodium (Porcine) (Heparin) 4,000 unit IVP Q6HR PRN PRN Reason: SEE COMMENTS Stop: 11/01/17 16:45 Heparin Sodium (Porcine) (Heparin) 2,000 unit IVP Q6H PRN PRN Reason: SEE COMMENTS Stop: 11/01/17 16:45 Heparin Sodium/Dextrose (Heparin 25,000 Unit/500 Ml D5w) 25,000 unit in 500 mls @ 24.276 mls/hr IVC .[id number] MELI; 12 UNIT/KG/HR PRN Reason: Protocol Stop: 11/01/17 16:46 Last Titration: 05/03/17 17:54 Dose: 9.04 unit/kg/hr, 18.3 mls/hr Loratadine (Claritin) 10 mg PO QPM MELI Stop: 11/02/17 18:01 Last Admin: 05/03/17 17:05 Dose: 10 mg Morphine Sulfate (Morphine Sulfate) 2 mg IVP Q4HR PRN PRN Reason: Chest Pain Stop: 11/01/17 18:49 Last Admin: 05/03/17 18:50 Dose: 2 mg Naloxone HCl (Narcan) 0.4 mg IVP Q2MIN PRN PRN Reason: Opioid Reversal Stop: 11/01/17 18:49 Omeprazole (Prilosec) 20 mg PO QAM MELI PRN Reason: Protocol Stop: 11/02/17 09:01 Last Admin: 05/04/17 07:45 Dose: 20 mg Ondansetron HCl (Zofran) 4 mg IVP Q8HR PRN PRN Reason: Nausea And Vomiting Stop: 11/01/17 18:49 Last Admin: 05/03/17 17:05 Dose: 4 mg Pantoprazole Sodium (Protonix) 40 mg IVP Q12HR MELI Stop: 11/02/17 06:01 Last Admin: 05/04/17 04:55 Dose: 40 mg Promethazine HCl (Phenergan) 12.5 mg IVP Q6HR PRN PRN Reason: Nausea And Vomiting Stop: 11/01/17 20:28 Last Admin: 05/03/17 22:13 Dose: 12.5 mg Sumatriptan Succinate (Imitrex) 25 mg PO Q2H PRN PRN Reason: Migraine Headache Stop: 11/01/17 18:53 Last Admin: 05/03/17 22:13 Dose: 25 mg - Imaging and Cardiology Echo: report reviewed Cardiac cath: pending - EKG Interpretation EKG results cardiology: other (Sinus rhythm on telemetry) - VTE Reasons for not Prescribing Prophylaxis: Not indicated-Anticoagulated or INR therapeutic Consult Discharge Plan - Plan Referrals: Andriy Campos DO [Primary Care Provider] -
[2017-05-04] MEDS: SUMAtriptan succinate 25 MG TABLET PO PRN (12:13)
[2017-05-04] MEDS: *HR* Promethazine 25 MG/ML VIAL IVP PRN (12:13)
[2017-05-04] MEDS: ALPRAZolam 0.5 MG TABLET PO PRN ×2 (12:13→18:13)
--- NOTE | 2017-05-04 12:46 | Internal Med Progress Note ---
Date of Encounter: 05/04/17 Time of Encounter: 09:45 - Assessment and plan (1) NSTEMI (non-ST elevated myocardial infarction) Current Visit: Yes Status: Acute Assessment and plan: Plan for left heart catheterization tomorrow given patient's underlying risk factors. We will stop IV heparin drip today. Continue aspirin, statin. (2) Abdominal pain Current Visit: Yes Status: Acute Assessment and plan: Improving. Could be related to underlying gastritis. Continue PPI. Will add Carafate for symptom relief. Qualifiers: Abdominal location: epigastric Qualified Code(s): R10.13 - Epigastric pain (3) Headache Current Visit: Yes Status: Resolved Assessment and plan: Headache has now resolved. Qualifiers: Headache type: tension-type Headache chronicity pattern: acute headache Intractability: intractable Qualified Code(s): G44.201 - Tension-type headache , unspecified, intractable (4) Obesity, morbid, BMI 40.0-49.9 Current Visit: Yes Status: Chronic (5) Hyperlipidemia Current Visit: Yes Status: Acute Assessment and plan: Continue Lipitor Qualifiers: Hyperlipidemia type: mixed hyperlipidemia Qualified Code(s): E78.2 - Mixed hyperlipidemia (6) Essential hypertension Current Visit: Yes Status: Chronic Assessment and plan: Well-controlled without any medications. (7) DVT prophylaxis Current Visit: Yes Status: Acute Assessment and plan: Will place patient on subcutaneous heparin - Subjective Interval history: Patient is doing better today. No chest pain. No headache. No abdominal pain. Does have some heartburn and epigastric discomfort intermittently. - Constitutional Vitals: Temp Pulse Resp BP Pulse Ox 97.4 F L 69 15 113/74 90 05/04/17 07:50 05/04/17 11:00 05/04/17 11:00 05/04/17 11:00 05/04/17 11:00 General appearance: Present: cooperative, A&O X 3, no acute distress, answers questions appropriately - Neck Neck exam general surgery: Present: supple, trachea midline. Absent: lymphadenopathy - Respiratory Respiratory exam: Present: CTAB. Absent: accessory muscle use, rales, rhonchi, wheezes - Cardiovascular Cardiovascular exam: Present: RRR, +S1, +S2. Absent: diastolic murmur, gallop, rubs, systolic murmur - GI/Abdominal GI/Abdominal exam: Present: normal bowel sounds, soft, tenderness (Mild epigastric), no peritoneal signs. Absent: distended - Extremities Exam Extremities exam: Present: warm, radial pulses palpable and symmetrical. Absent : calf tenderness, cyanotic, pedal edema - Neurological Exam Neurological exam: Present: CN II-XII intact, oriented X3, no focal deficits. Absent: facial droop, speech deficit Internal Medicine: Result - Labs CBC & Chem 7: 05/03/17 00:50 05/03/17 00:50 - ABG Interpretation ABG results: PT/INR, D-dimer PT 11.5 Seconds (9.4-12.1) 05/02/17 16:53 - VTE Reasons for not Prescribing Prophylaxis: Not indicated-Anticoagulated or INR therapeutic Consult Discharge Plan - Plan Referrals: Andriy Campos DO [Primary Care Provider] -
[2017-05-04] MEDS: Loratadine 10 MG TABLET PO SCH (18:14)
[2017-05-04] MEDS: *HR* Heparin 5,000 UNIT/ML VIAL SQ SCH (18:14)
[2017-05-05] MEDS: *HR* HYDROcodone/Acet 5/325 mg TABLET PO PRN (02:06)
[2017-05-05] MEDS: Ondansetron 4 MG/2 ML VIAL IVP PRN (03:16)
[2017-05-05] MEDS: *HR* Heparin 5,000 UNIT/ML VIAL SQ SCH (05:00)
[2017-05-05] MEDS: Pantoprazole 40 MG VIAL IVP SCH (05:04)
[2017-05-05] MEDS ORDERED: Heparin 1,000 UNIT, 0.9 % Sodium Chloride 500 ML INARTERIAL ONE (08:15)
--- NOTE | 2017-05-05 08:28 | Event Note ---
Date of Encounter: 05/05/17 Time of Encounter: 08:30 - Cardiology Event Note Patient for [facility] this am. Further recs after cath.
[2017-05-05] MEDS: Aspirin 81 MG TAB.CHEW PO SCH (08:40)
[2017-05-05] MEDS ORDERED: 0.9 % Sodium Chloride 1,000 ML ONE ×2 (08:54→09:44)
[2017-05-05] MEDS ORDERED: Nitroglycerin 1,000 MCG/10 ML VIAL IV ONE (09:45)
[2017-05-05] MEDS ORDERED: *HR* Heparin 10,000 UNIT/10 ML VIAL ONE (09:45)
[2017-05-05] MEDS ORDERED: *HR* FentaNYL (PF) 100 MCG/2 ML VIAL ONE (09:58)
[2017-05-05] MEDS ORDERED: *HR* Midazolam HCl 2 MG/2 ML VIAL ONE (09:58)
--- NOTE | 2017-05-05 10:31 | Pre-Sedation Evaluation ---
Pre-sedation evaluation - Pre-sedation checklist Date of procedure: 05/05/17 Procedure: [facility] Recent Vitals: Last Vital Signs Temp 97.9 F 05/05/17 06:24 Pulse 70 05/05/17 06:24 Resp 16 05/05/17 06:24 BP 113/71 05/05/17 06:24 Pulse Ox 96 05/05/17 06:24 H&P (including ROS) documented in medical record: Yes Previous reaction to sedatives/anesthetics: No Dietary Status: NPO after Midnight Dentition: No loose teeth or bridges Possible difficult airway: No ASA Classification *see protocol: CLASS II-Mild systemic disease Plan of Care: Pt appropriate candidate for procedure/moderate/conscious sedation
--- NOTE | 2017-05-05 10:32 | Invasive Diagnostic Lab Proc ---
Name: Miladis Weaver Date of Study: 05/05/2017 Date: 1955 Ht: 62.0in Medical Record#: [id number] Age: 61 Wt: 240.52lb Gender: Female BSA: 2.07 Order #: [id number] BMI: 43.98 Physicians Procedure Physician: Yesy Colo MD Referring MD: Referring MD: Staff Name Position Time In Erasmo Drummond RT (R) Pre op rt Sharri Montgomery RN Pre-Op Nurse Brenda Navarrete RT (R) Scrub 09:53 AM Christy Lucas RN Transitional Living Specialist 09:54 AM Emmanuelle Worrell RN Monitor 09:54 AM Indications Indication Non-Stemi Procedures Performed Procedure CORONARY ARTERY ANGIO S&I Pre-Procedure Checklist Informed consent is complete signed and on chart. H&P is on chart. ID band is on and ID verified with patient. Patient NPO for procedure The procedure was described for the patient and questions were answered. Blood Pressure: 107/82 ECG is on chart. Plan of Care Patient will tolerate the procedure without complications. Adequate level of comfort will be maintained. Hemodynamics will remain stable Patient will recover from procedure without complications. Respiratory function will be maintained. Cardiac rhythm will remain stable. Patient temperature will be maintained. Patient and/or family have verbalized understanding of the procedure. Patient Education Chief Complaint/Reason for Test: Cardiac Cath Developmental Category: Adult (18-64 years) Developmentally Appropriate for Age: Yes Learning Barriers: None Education Needs: Procedure Education Method: Verbal Information Taught: Cardiac Cath Educational Evaluation: Able to repeat information Intravenous Access Time IV Size Location DC'd Fluid/Drip Rate Units RN 08:56 AM 20g 1 1/4" Peripheral-Lock On Arrival Rt Arm 0.9NaCl 25 ml/hr Sharri Montgomery RN Allergies [facility] Vital Signs Time BP (mmHg) HR (bpm) O2 Sat. RR (bpm) LOC 08:55 AM 107 / 82 73 98 % 18 5 = Fully awake and oriented or at pre-proc level 10:00 AM / % 5 = Fully awake and oriented or at pre-proc level 10:00 AM / % 5 = Fully awake and oriented or at pre-proc level 10:03 AM 130 / 69 71 97 % 14 10:09 AM 137 / 80 71 99 % 16 10:14 AM 138 / 77 83 97 % 17 Procedural Medications Time Medication Dose Units Method Given By 09:54 AM Oxygen 2 L/min nasal cannula Christy Lucas RN 09:59 AM Versed 1 mg Intravenous Christy Lucas RN 09:59 AM Fentanyl 50 mcg Intravenous Christy Lucas RN 10:06 AM Lidocaine 2% 10 ml Subcutaneous Yesy Cool MD 10:10 AM Fentanyl 25 mcg Intravenous Christy Lucas RN ASA Classification: CLASS II- Mild systemic disease (i.e. well-controlled diabetes, hypertension, asthma, cigarette smoking) Jona Score Preprocedure Postprocedure Activity 2- Moves 4 extremities sustained head lift Activity 2- Moves 4 extremities sustained head lift Circulation 2- SBP +/= 20 points of pre-anesthetic level Circulation 2- SBP +/= 20 points of pre-anesthetic level Consciousness 2- Awake and alert oriented x 3 Consciousness 2- Awake and alert oriented x 3 O2 Saturation 2- Able to maintain O2 satruation of 92% on room air O2 Saturation 2- Able to maintain O2 satruation of 92% on room air Respiratory 2- Able to deep breathe and cough well Respiratory 2- Able to deep breathe and cough well Total Score 10 Total Score 10 Contrast Agent: Isovue Diagnostic Contrast: 23 ml Total Contrast: 23 ml Fluoro Dose: 114 mGy Procedure Log Time Note Enter By 09:53 AM Pt arrived to [employer] [employer] 2 at 09:53 ejohnson 09:54 AM Brenda Navarrete (R) Position: Scrub Time in: :53 ejohnson 09:54 AM Christy Lucas RN Position: Transitional Living Specialist Time in: :54 ejohnson 09:54 AM Emmanuelle Worrell RN Position: Monitor Time in: :54 ejohnson 09:54 AM Patient charges- Angio tray pack, Navilyst 3mm J, Pulse Oximetry and ACIST tubing and transducer ejohnson 09:54 AM Case Delayed No ejohnson 09:54 AM Hair removed from procedure site in procedure lab using clippers. Bilateral groin prepped with Chloraprep by Brenda Navarrete (R), safety strap applied then patient was draped. Skin intact. ejohnson 09:54 AM Physician arrived 09:54 ejohnson 09:54 AM ASA Class CLASS II- Mild systemic disease (i.e. well-controlled diabetes, hypertension, asthma, cigarette smoking) ejohnson 09:54 AM Matti and yas completed ejohnson 09:54 AM Sign in performed according to hospital policy. ejohnson 09:54 AM Procedure start 09:54 ejohnson 09:54 AM Time: 09:54 Oxygen on at 2 L/min per nasal cannula by Christy Lucas RN ejohnson 09:58 AM CathStat 09:58 AM Vitals capture started with the following parameters, Patient=Adult, Interval=5 min, Initial Cugwlqdi=275 mmHg, Deflation Rate=5 mmHg, Cuff placed on Right Arm 09:58 AM Recorded ECG: HR=70 Condition=Condition 1 09:59 AM Time: 09:59 Versed 1 mg Intravenous Given by Christy Lucas RN ejohnskenneth 09:59 AM Time: 09:59 Fentanyl 50 mcg Intravenous Given by Christy Lucas RN ejohnskenneth 10:00 AM Time: 09:59 Patient comfortable and pain free: Yes ejohnson 10:00 AM Time: 10:00LOC: 5 = Fully awake and oriented or at pre-proc level ejohnson 10:01 AM Vitals capture stopped. 10:01 AM Vitals capture started with the following parameters, Patient=Adult, Interval=5 min, Initial Cyctaykd=851 mmHg, Deflation Rate=5 mmHg, Cuff placed on Right Arm 10:03 AM HR=71 bpm, GKTJ=387/69 mmhg, SpO2=97.0 %, Resp=14 B/min, Comment=SR 10:05 AM Pressure channel 1 zero failed. 10:05 AM Pressure channel 1 zero failed. 10:06 AM Time out performed according to hospital policy ejohnson 10:06 AM Time: 10:06 10 ml Lidocaine 2% to right groin Subcutaneous Given by Yesy Cool MD [email or web address] 10:07 AM Access obtained by percutaneous puncture. 6Fr 10cm Terumo [place] sheath placed in right Femoral artery. [id number] ejohnson 10:07 AM Micro-Introducer Kit utilized for sheath placement ejohnson 10:07 AM Bolus angiogram of right Femoral complete: 2 ml/sec for a total of 4 mls ejohnson 10:08 AM 5Fr FR 4 catheter inserted over the wire DNC ejohnson 10:09 AM Recorded Pressure: Ao, HR=75, Condition=Condition 1 (Aorta) Ao 121/92/106 10:09 AM RCA angiography performed in multiple views. ejohnson 10:09 AM HR=71 bpm, UOTM=667/80 mmhg, SpO2=99 %, Resp=16 B/min 10:09 AM Catheter removed ejohnson 10:09 AM 5Fr FL 4 catheter inserted over the wire DNC ejohnson 10:10 AM Time: 10:10 Fentanyl 25 mcg Intravenous Given by Christy Lucas RN ejohnson 10:11 AM Recorded Pressure: Ao, HR=74, Condition=Condition 1 (Aorta) Ao 127/94/109 10:11 AM LCA angiography performed in multiple views. ejohnson 10:11 AM Catheter removed ejohnson 10:12 AM Procedure completed at 10:12 ejohnson 10:13 AM Sign out completed: Radiation Dose 113.91 mGy Fluoro Time: 0.8 Isovue 370 - 200ml contrast 23 ml given by Yesy Cool MD. Complications: NoneCardiac Rehab Consult needed: NoConfirmed administered medications: Yes ejohnson 10:13 AM Isovue 370 - 200ml,1 Bottle(s) used. ejohnson 10:13 AM Arterial sheath pulled, Mynx closure device used and was Successful S/N. ejohnson 10:14 AM Estimated Blood Loss: minimal ejohnson 10:14 AM Post ECG NSR ejohnson 10:14 AM HR=83 bpm, BBZE=654/77 mmhg, SpO2=97.0 %, Resp=17 B/min, Comment=SR 10:14 AM Post Blood Pressure 138/77 ejohnson 10:15 AM 10:14 Post Pulses Bilateral DP & PT 2+ ejohnson 10:15 AM Time: 10:00 Patient comfortable and pain free: Yes ejohnson 10:15 AM Time: 10:00LOC: 5 = Fully awake and oriented or at pre-proc level ejohnson 10:15 AM Information taught Cardiac Cath and Mynx ejohnson 10:15 AM Education needs Plan of Care and Responsibilities of Patient in Care ejohnson 10:15 AM Learning barriers :None ejohnson 10:15 AM Education Methods Verbal ejohnson 10:15 AM Education evaluation Able to repeat information ejohnson 10:15 AM Site status No bleeding/hematoma - Rt Groin as reported by Brenda Navarrete RT (R) at 10:15 ejohnson 10:16 AM Opsite applied ejohnson 10:17 AM Family placed in consult room. ejohnson 10:18 AM Complications: None ejohnson 10:19 AM Coronary Dominance: right ejohnson 10:19 AM Vitals capture stopped. 10:23 AM Report given to Adithya SULLIVAN Pt taken to E Room #16. 10:22 ejohnson 10:24 AM Plavix, Effient or Brilinta given No ejohnson 10:24 AM Delay to floor No ejohnson 10:24 AM Patient out of room: 10:24 ejohnson Complications Complication None Hemodynamics Pressures Site Systolic/A Wave Diastolic/V Wave Mean AO 121 92 106 AO 127 94 109 Post Procedure Information Blood Pressure: 138/77 mmHg Rhythm: NSR Post procedural instructions were given Closure Device Time Device Success/Fail 05/05/2017 10:13:00 AM MynxGrip Successful Site Checks Time Location Status Staff Sheath In? Note 10:15 AM Rt Groin No bleeding/hematoma Brenda Navarrete RT (R) Pulses Time Site Pre-Procedure Post-Procedure Note 05/05/2017 8:55:00 AM Bilateral DP & PT 2+ 10:14:00 AM Bilateral DP & PT 2+ Updated by Emmanuelle Worrell RN on 05/05/2017 10:25:10 AM Emmanuelle Worrell RN electronically signed on 05/05/2017 10:25:49 AM with status of Final
[2017-05-05 10:40] VITALS: BP 111/79
[2017-05-05] MEDS: Folic Acid 1 MG TABLET PO SCH (11:17)
--- NOTE | 2017-05-05 11:35 | Event Note ---
Date of Encounter: 05/05/17 Time of Encounter: 11:30 - Cardiology Event Note Per discussion with Dr. Cool, no significant lesions requiring intervention. Will s/o, re-consult PRN, f/u scheduled. All questions answered.
--- NOTE | 2017-05-05 13:25 | Discharge Summary ---
Date of Encounter: 05/05/17 Time of Encounter: 13:11 - Discharge Diagnosis (1) Elevated troponin Priority: Primary Status: Acute (2) NSTEMI (non-ST elevated myocardial infarction) Priority: Secondary Status: Ruled-out (3) Abdominal pain Priority: Secondary Status: Acute Qualifiers: Abdominal location: epigastric Qualified Code(s): R10.13 - Epigastric pain (4) Headache Priority: Secondary Status: Resolved Qualifiers: Headache type: tension-type Headache chronicity pattern: acute headache Intractability: intractable Qualified Code(s): G44.201 - Tension-type headache , unspecified, intractable (5) Obesity, morbid, BMI 40.0-49.9 Priority: Secondary Status: Chronic (6) Hyperlipidemia Priority: Secondary Status: Acute Qualifiers: Hyperlipidemia type: mixed hyperlipidemia Qualified Code(s): E78.2 - Mixed hyperlipidemia (7) Essential hypertension Priority: Secondary Status: Chronic (8) DVT prophylaxis Priority: Secondary Status: Acute - Discharge Medications Prescriptions: Acetaminophen [Tylenol Arthritis] 650 mg PO Q6H PRN #30 tablet.er PRN Reason: Pain Aspirin Enteric Coated [Aspirin EC] 81 mg PO DAILY #30 tablet. Atorvastatin [Lipitor] 80 mg PO HS #30 tablet Sucralfate [Carafate] 1 gm PO QIDAC #120 tablet Home Medications: Cetirizine HCl [Zyrtec] 10 mg PO QPM 08/08/15 [History] Duloxetine HCl [Cymbalta] 60 mg PO QPM 08/08/15 [History] Fluticasone Propionate Nasal [Flonase] 2 spr NS DAILY 08/08/15 [History] Omeprazole [PriLOSEC] 20 mg PO QAM 08/08/15 [History] SUMAtriptan succinate [Imitrex] 25 mg PO Q2H PRN 08/08/15 [History] Folic Acid 1 mg PO DAILY #30 tablet 09/05/16 [Rx] ALPRAZolam [Xanax 1 MG Tablet] 1 mg PO TID PRN 05/03/17 [History] Amoxicillin/Clavulanate [Augmentin] 875 mg PO BID 05/03/17 [History] Cholecalciferol (D-3) [Vitamin D] 5,000 unit PO DAILY 05/03/17 [History] Acetaminophen [Tylenol Arthritis] 650 mg PO Q6H PRN #30 tablet.er 05/05/17 [Rx] Aspirin Enteric Coated [Aspirin EC] 81 mg PO DAILY #30 tablet. 05/05/17 [Rx] Atorvastatin [Lipitor] 80 mg PO HS #30 tablet 05/05/17 [Rx] Sucralfate [Carafate] 1 gm PO QIDAC #120 tablet 05/05/17 [Rx] Allergies/Adverse Reactions: 3 Allergy/AdvReac Type Severity Reaction Status Date / Time cefdinir [From Omnicef] Allergy Hives Verified 05/02/17 11:51 Sulfa (Sulfonamide Allergy Hives Verified 05/02/17 11:51 Antibiotics) cephlasporin Allergy Confusion Uncoded 05/02/17 11:51 Procedures/tests Complete & Pending: Procedures Performed prior 72 hours Category Date Time Status CL Cardiac Catheterization [CL] Routine Radio Electronics Officer 05/05/17 07:51 Ordered ECG 12 lead ECG [ECG] Routine Y 05/02/17 18:18 Completed Date of admission: 05/02/17 19:00 Primary care physician: Andriy Campos DO Consults: 05/04/17 07:53 Consult to Cardiac Rehabilitation-Phase1 [CONS] Routine Comment: Reason for Consult: elevated tropn, possible NSTEMI Call Completed: No Discharging clinician: Susan Mark Anticipated date of discharge: 05/05/17 - Patient Status Disposition: Home, Self-Care Condition: Good Functional capacity at discharge: independent ambulation Overall status at discharge: patient is progressing back to baseline - Discharge Instructions Instructions: Sucralfate (By mouth), Acetaminophen (By mouth), Aspirin (By mouth), Atorvastatin (By mouth), Chest Pain (DC) Follow Up With: Andriy Campos DO [Primary Care Provider] - 05/21/17 10:30 am (in 1 week) Additional Instructions: RISK FACTORS: STOP SMOKING: If you smoke, STOP. Smoking or tobacco use significantly increases your risk of heart disease because nicotine causes the arteries to narrow or constrict. It also causes fats to stick to the artery. Your chances of having a heart attack are greatly increased if you continue to smoke. For more information, call the education line for smoking cessation 8-394-WMCFFTN EAT A LOW FAT/CHOLESTEROL/SODIUM DIET: This diet may help reduce your chances of having a heart attack. LIFTING: Avoid lifting anything more than 10 pounds for 5-7 days Prior to straining, laughing, sneezing and/or coughing, apply manual pressure directly over insertion site. ACTIVITY: You may walk or climb stairs as tolerated You can resume sexual activity as tolerated In general, you are encouraged to engage in a minimum of 30 minutes or more of moderate intensity physical activity, such as brisk walking, daily or at least 3 -4 times weekly BATHING Do not submerge the site into water (bath tub, hot tub, swimming pool) for 1 week. This can be a source for infection into the blood stream. You may shower after 24 hours SITE CARE: After 24 hours, you may remove the dressing and leave the site open to air. Keep the site clean and dry. Clean gently and pat dry. You can expect bruising and tenderness that gradually resolve within a week or two. Return to work as instructed per your physician-usually 1 week after procedure Resume driving as instructed per physician-usually 3 days after procedure Keep all scheduled follow up appointments Resume medications as instructed IMPORTANT: If prescribed a Platelet Aggregation Inhibitor such as, Plavix, Brilinta or Effient: Duration of therapy is minimum one year These medications are often used in combination with Aspirin in prevention of future heart attacks Never discontinue unless consult with your Professional Development Manager STROKE (CVA) Risk factors for a stroke are: Age, cigarette smoking, diabetes, excessive alcohol consumption, family history, high blood pressure, overweight, physical inactivity, prior stroke, heart attack, diagnosis of carotid artery stenosis or other artery disease. Warning signs: Sudden numbness or weakness of the face, arm or leg; especially on one side of the body, sudden confusion, trouble speaking or understanding, sudden trouble seeing in one or both eyes, sudden trouble walking, dizziness, loss of balance or coordination, sudden severe headache with no cause. Call 911 or go to the Emergency Room. CONGESTIVE HEART FAILURE: If you have been diagnosed with Congestive Heart Failure (CHF) and your symptoms return, make an appointment with your physician Weigh yourself daily. Notify your physician if you have a weight gain of two or more pounds in one day or five or more pounds in one week. If you experience any difficulty breathing, please call 911 BLEEDING: Although the risk of bleeding is minimal, it can happen. If you have any bleeding from the site, apply firm pressure above the puncture site for 10-15 minutes. If the bleeding does not stop, continue manual pressure and call 911 Contact your physician if: You develop a fever greater than 101 degrees Fahrenheit Your site becomes reddened or has any drainage You have an increase in pain or burning at the site or if a large knot forms at the site. If you experience chest pain, shortness of breath, dizziness, or extreme tiredness, stop the activity and rest. Please notify your physicians office if you experience any of these symptoms and they are not relieved by rest please call 911! - Diet and Activity Activity: increase activity as tolerated Diet: low fat, low cholesterol, low salt diet Hospital course: Ms. Weaver is a 61 year old female patient with history of prediabetes, hyperlipidemia and gastroesophageal reflux disease who presented to the ER with complaints of right upper quadrant abdominal pain along with nausea. She had troponin elevation of 0.17 initially and was placed in the hospital for observation for possible non-ST elevation OR. Her repeat troponin since then have been normal. Cardiology evaluated the patient and recommended left heart catheterization. Patient underwent this procedure today. She was not found to have any significant lesions requiring intervention. As such cardiology recommends medical management. She will be discharged on aspirin and statin. Patient's abdominal pain has also since improved. She had been placed on PPI which she was already taking at home. We have added Carafate to her treatment regimen to help with her acid reflux and possible underlying gastritis. If her symptoms do not improve, she will need upper GI endoscopy which can be done as outpatient. Patient also had intractable headache which was treated with Imitrex and Fioricet with improvement in her symptoms. She does have a history of migraine and takes Fioricet at home. Presently, patient is clinically stable for discharge. She will follow-up with her primary care provider for further management of her chronic medical conditions. Her statin dosage has been increased due to her LDL being 130. - Time Spent with Patient Total time spent providing and/or coordinating discharge services: Greater than 30 minutes (35 min) - Constitutional Vitals: Temp Pulse Resp BP Pulse Ox 98 F 76 16 111/79 97 05/05/17 10:38 05/05/17 10:38 05/05/17 10:38 05/05/17 10:38 05/05/17 10:38 General appearance: Present: cooperative, A&O X 3, no acute distress, answers questions appropriately - Neck Neck exam general surgery: Present: supple, trachea midline. Absent: lymphadenopathy - Respiratory Respiratory exam: Present: CTAB. Absent: accessory muscle use, rales, rhonchi, wheezes - Cardiovascular Cardiovascular exam: Present: RRR, +S1, +S2. Absent: diastolic murmur, gallop, rubs, systolic murmur - GI/Abdominal GI/Abdominal exam: Present: normal bowel sounds, soft, no peritoneal signs. Absent: distended, tenderness - Extremities Exam Extremities exam: Present: warm, radial pulses palpable and symmetrical. Absent : calf tenderness, cyanotic, pedal edema - Neurological Exam Neurological exam: Present: alert, oriented X3, no focal deficits. Absent: facial droop, speech deficit - VTE Reasons for not Prescribing Prophylaxis: Not indicated-Anticoagulated or INR therapeutic
--- NOTE | 2017-05-05 16:56 | Electrocardiograph Report ---
[address] [address] Test Date: 2017-05-02 Pat Name: Miladis Weaver Department: 104 Room: 2NE16 Gender: F Gui Developer: BROOK : 1955 Requested By: Aashish Aragon Order Number: [id number] Reading MD: Bret Winn Measurements Intervals [place]ney Rate: 64 P: -15 KS: 135 QRS: 21 QRSD: 90 T: 46 QT: 428 QTc: 438 Interpretive Statements SINUS RHYTHM ANTERIOR T WAVE CHANGES Electronically Signed On 05-05-2017 16:55:20 EST by Bret Winn
--- NOTE | 2017-05-05 17:00 | Electrocardiograph Report ---
[address] [address] Test Date: 2017-05-02 Pat Name: Miladis Weaver Department: 104 Room: 2NE16 Gender: F Urology Physician Assistant: BROOK : 1955 Requested By: Susan Mark Order Number: [id number] Reading MD: Bret Winn Measurements Intervals Muse Rate: 67 P: -11 [place]: 137 QRS: 26 QRSD: 82 T: 47 QT: 412 QTc: 427 Interpretive Statements SINUS RHYTHM Electronically Signed On 05-05-2017 16:58:07 EST by Bret Winn
== END 2017-05-05 15:20 | disposition home or self-care (01) | DRG 241 ==
LOC: EMEROO 11:28 → 2NENU 11:28
PROVIDERS: ADMIT Internal Medicine; ATTEND Internal Medicine

== ENCOUNTER 2017-11-09 17:55 | Inpatient (IN) ==
[2017-11-09] MEDS ORDERED: 0.9 % Sodium Chloride 1,000 ML IVC ONE (18:01)
[2017-11-09] MEDS ORDERED: Ondansetron 4 MG/2 ML VIAL IVP ONE (18:01)
[2017-11-09] MEDS ORDERED: Famotidine 20 MG/2 ML VIAL IVP ONE (18:02)
--- NOTE | 2017-11-09 18:05 | Emergency Department Note ---
Disposition Clinical Impression: Sepsis due to pneumonia Nausea and vomiting Qualifiers: Vomiting type: unspecified Vomiting Intractability: non-intractable Qualified Code(s): R11.2 - Nausea with vomiting, unspecified Disposition: Admitted As Inpatient Condition: Serious Reasons to Return/Additional Instructions: Advance a bland diet as tolerated. Please return should you experience any worsening or concerning symptoms including worsening abdominal pain, bloody stools, fevers, inability to tolerate oral intake Prescriptions: Ondansetron ODT [Zofran ODT] 4 mg SL Q6HR PRN #10 tab.rapdis PRN Reason: Nausea Referrals: Andriy Campos DO [Primary Care Provider] - Forms: ED Satisfaction Letter Time of Disposition: 20:21 Nausea/Vomiting/Diarrhea HPI - General Chief complaint: ED Nausea/Vomiting/Diarrhea Stated complaint: n/v Time Seen by Provider: 11/09/17 17:58 Source: patient Mode of arrival: EMS Limitations: no limitations Nursing Notes Reviewed: Yes Vital Signs Reviewed: Yes - History of Present Illness Pt Subjective Complaint: nausea, vomiting Onset (ago): hour(s) Description of emesis: food contents Associated Abdominal Pain: Yes If pain, Location of pain: epigastric Radiation: diffuse Severity: none Quality: aching Consistency: constant Worsens with: vomiting Associated symptoms: Reports: nausea/vomiting - Related Data Home Medications Medication Instructions Recorded Confirmed Cetirizine HCl [Zyrtec] 10 mg PO QPM 08/08/15 09/03/17 Duloxetine HCl [Cymbalta] 60 mg PO QPM 08/08/15 09/03/17 Fluticasone Propionate Nasal 2 spr NS DAILY 08/08/15 09/03/17 [Flonase] Omeprazole [PriLOSEC] 20 mg PO QAM 08/08/15 09/03/17 SUMAtriptan succinate [Imitrex] 25 mg PO Q2H PRN 08/08/15 09/03/17 ALPRAZolam [Xanax 1 MG Tablet] 1 mg PO TID PRN 05/03/17 09/03/17 Amoxicillin/Clavulanate [Augmentin] 875 mg PO BID 05/03/17 09/03/17 Cholecalciferol (D-3) [Vitamin D] 2,000 mg PO DAILY 09/03/17 09/03/17 Topiramate [Topamax] 25 mg PO DAILY 09/03/17 09/03/17 Previous Rx's Medication Instructions Recorded Acetaminophen [Tylenol Arthritis] 650 mg PO Q6H PRN #30 tablet.er 05/05/17 Aspirin Enteric Coated [Aspirin EC] 81 mg PO DAILY #30 tablet. 05/05/17 Atorvastatin [Lipitor] 80 mg PO HS #30 tablet 05/05/17 Ondansetron ODT [Zofran ODT] 4 mg SL Q6HR PRN #10 tab.rapdis 11/09/17 Allergies Allergy/AdvReac Type Severity Reaction Status Date / Time cefdinir [From Omnicef] Allergy Hives Verified 09/03/17 07:46 Sulfa (Sulfonamide Allergy Hives Verified 09/03/17 07:46 Antibiotics) cephlasporin Allergy Mild Confusion Uncoded 08/06/17 16:23 All systems ED: reviewed and negative except as stated. Constitutional: Reports: as per HPI Eyes: Reports: as per HPI ENT ED: Reports: as per HPI Cardiovascular: Reports: as per HPI Respiratory: Reports: cough Gastrointestinal: Reports: abdominal pain, nausea, vomiting Genitourinary: Reports: as per HPI Musculoskeletal: Reports: as per HPI Integumentary: Reports: as per HPI Neurological: Reports: as per HPI Psychiatric: Reports: as per HPI Endocrine: Reports: as per HPI Hematological/Lymphatic: Reports: as per HPI Allergic/Immunologic: Reports: as per HPI Past Medical History - Past Medical History Source: old records reviewed Medical history: Reports: arthritis, diabetes, GERD, hyperlipidemia Surgical history: Reports: breast surgery, hysterectomy Psychiatric history: Reports: anxiety, depression, panic disorder [employer] history: Reports: non-contributory - Social History Smoking Status: Current every day smoker Smokeless Tobacco Status: No Alcohol use: Reports: none Drug use: Reports: none Physical Exam - General Limitations: no limitations General appearance: alert, anxious - Head Head exam: atraumatic - Eye Eye exam: Present: normal appearance - ENT ENT exam: normal exam - Neck Neck exam: Present: normal inspection, full ROM - Chest Chest inspection: Present: normal inspection, symmetric chest wall rise - Respiratory Respiratory exam: Present: normal lung sounds bilaterally - Cardiovascular Cardiovascular exam: Present: normal rhythm, tachycardia, normal heart sounds - Abdominal Exam Abdominal exam: Present: soft, tenderness (Mild tenderness in epigastrium without guarding, rebound, rigidity) Abdominal tenderness: Absent: RUQ, RLQ - Rectal Exam Rectal exam: Present: deferred - Extremities Exam Extremities exam: Present: normal inspection - Neurological Exam Neurological exam: Present: alert, oriented X3, CN II-XII intact - Psychiatric Psychiatric exam: Present: anxious - Skin Skin exam: Present: warm, dry, intact Course Course Narrative: Patient presents with epigastric pain as well as nausea and 3 episodes of non- bloody emesis today. She has a benign exam but appears anxious. She is tachycardic. I will initiate IV hydration and antibiotic therapy. She will be given Pepcid. Labs to be evaluated. She will be reassessed - Reevaluation(s) Reevaluation #1: Limited RUQ transabd US performed by me. GB visualized w/o wall thickening, pericholecystic fluid or intraluminal stones noted Reevaluation #2: Patient reassessed. She states her nausea persists. Additional medications ordered Reevaluation #3: Patient complains of persistent symptoms. CT abdomen and pelvis ordered Additional Reevaluation(s): Patient has not vomited in 2-1/2 hours she has been evaluated here in the emergency department. She has been intermittently sleeping. 21:18: Patient was initially tachycardic and has a white blood cell count of 12.6 thousand. She has a suspected left lower lobe infiltrate identified on CT abdomen and pelvis. She meets SIRS criteria. Sepsis subset including lactic acid and time lactate as well as blood cultures ordered. Empiric antibiotics initiated. I will request admission to the medicine service Vital Signs Temperature 98.8 F 11/09/17 17:56 Pulse Rate 117 11/09/17 17:56 Respiratory Rate 18 11/09/17 17:56 Blood Pressure 117/89 11/09/17 17:56 O2 Sat by Pulse Oximetry 93 11/09/17 17:56 Temperature 98.8 F 11/09/17 18:01 Pulse Rate 117 11/09/17 18:01 Respiratory Rate 18 11/09/17 18:01 Blood Pressure 117/89 11/09/17 18:01 O2 Sat by Pulse Oximetry 93 11/09/17 18:01 Oxygen Delivery Oxygen Delivery Room Air Nausea/Vomiting/Diarrhea - Lab Data Lab results reviewed: Yes I reviewed the patient's lab results. Result diagrams: 11/09/17 19:40 11/09/17 18:26 Lab Results 11/09/17 11/09/17 11/09/17 Range/Units 18:26 18:26 18:57 WBC (4.3-11.1) K/mcL RBC (3.82-4.97) M/mcL Hgb (11.5-15.4) g/dL Hct (35.3-44.9) % MCV (83.0-100.0) fL MCH (28.0-33.3) pg MCHC (31.6-35.5) g/dL RDW (11.5-14.5) % Plt Count (140-400) K/mcL MPV (9.4-12.4) fL Immature Gran % (0-4) % Seg Neutrophils % % Lymphocytes % % Monocytes % % Eosinophils % % Basophils % % Neutrophils # (1.6-8.9) K/mcL Lymphocytes # (0.6-4.6) K/mcL Monocytes # (0.0-1.3) K/mcL Eosinophils # (0.0-0.6) K/mcL Basophils # (0.0-0.2) K/mcL Sodium 136 (136-145) mEq/L Potassium 4.0 (3.5-5.1) mEq/L Chloride 106 (98-107) mEq/L Carbon Dioxide 23 (23-29) mEq/L BUN 9 (8-23) mg/dL Creatinine 0.70 (0.60-1.20) mg/dL Est GFR ( Amer) > 60 (> 60) Est GFR (Non-Af Amer) > 60 (> 60) BUN/Creatinine Ratio 13 (6-26) Glucose 122 H (70-105) mg/dL Calculated Osmolality 282 (280-300) Calcium 9.1 (8.6-10.3) mg/dL Magnesium 1.9 (1.6-2.6) mg/dL Total Bilirubin 0.9 (0.3-1.0) mg/dL AST 18 (13-39) Units/L ALT 12 (7-52) Units/L Alkaline Phosphatase 98 (34-104) Units/L Serum Total Protein 7.1 (6.4-8.9) g/dL Albumin 4.4 (3.5-5.7) g/dL Globulin 2.7 (2.4-3.5) g/dL Albumin/Globulin Ratio 1.6 (1.1-2.2) Lipase 6 L (11-82) Units/L Urine Color Dark Yellow (Yellow) Urine Clarity Clear (Clear) Urine pH 6.0 (5.0-8.0) pH Units Ur Specific [place] 1.027 H (1.010-1.025) Urine Protein 30 H (Neg-Trace) mg/dL Urine Glucose (UA) Normal (Normal) mg/dL Urine Ketones Negative (Negative) mg/dL Urine Blood Trace H (Negative) Urine Nitrite Negative (Negative) Urine Bilirubin Negative (Negative) Urine Urobilinogen Normal (Normal) mg/dL Ur Leukocyte Esterase Negative (Negative) Urine Microscopic RBC 0-3 (0-3) per hpf Urine Microscopic WBC 0-3 (0-3) per hpf Ur Squamous Epith Cells Many H (None-Few) per lpf Urine Bacteria None Seen (None-Few) per hpf Hyaline Casts None Seen (None-Few) per lpf Specimen Rejected Clotted 11/09/17 Range/Units 19:40 WBC 12.6 H (4.3-11.1) K/mcL RBC 5.65 H (3.82-4.97) M/mcL Hgb 14.3 (11.5-15.4) g/dL Hct 44.5 (35.3-44.9) % MCV 78.8 L (83.0-100.0) fL MCH 25.3 L (28.0-33.3) pg MCHC 32.1 (31.6-35.5) g/dL RDW 14.7 H (11.5-14.5) % Plt Count 119 L (140-400) K/mcL MPV 13.0 H (9.4-12.4) fL Immature Gran % 0.6 (0-4) % Seg Neutrophils % 85.7 % Lymphocytes % 9.5 % Monocytes % 3.9 % Eosinophils % 0.0 % Basophils % 0.3 % Neutrophils # 10.8 H (1.6-8.9) K/mcL Lymphocytes # 1.2 (0.6-4.6) K/mcL Monocytes # 0.5 (0.0-1.3) K/mcL Eosinophils # 0.0 (0.0-0.6) K/mcL Basophils # 0.0 (0.0-0.2) K/mcL Sodium (136-145) mEq/L Potassium (3.5-5.1) mEq/L Chloride (98-107) mEq/L Carbon Dioxide (23-29) mEq/L BUN (8-23) mg/dL Creatinine (0.60-1.20) mg/dL Est GFR ( Amer) (> 60) Est GFR (Non-Af Amer) (> 60) BUN/Creatinine Ratio (6-26) Glucose (70-105) mg/dL Calculated Osmolality (280-300) Calcium (8.6-10.3) mg/dL Magnesium (1.6-2.6) mg/dL Total Bilirubin (0.3-1.0) mg/dL AST (13-39) Units/L ALT (7-52) Units/L Alkaline Phosphatase (34-104) Units/L Serum Total Protein (6.4-8.9) g/dL Albumin (3.5-5.7) g/dL Globulin (2.4-3.5) g/dL Albumin/Globulin Ratio (1.1-2.2) Lipase (11-82) Units/L Urine Color (Yellow) Urine Clarity (Clear) Urine pH (5.0-8.0) pH Units Ur Specific [place] (1.010-1.025) Urine Protein (Neg-Trace) mg/dL Urine Glucose (UA) (Normal) mg/dL Urine Ketones (Negative) mg/dL Urine Blood (Negative) Urine Nitrite (Negative) Urine Bilirubin (Negative) Urine Urobilinogen (Normal) mg/dL Ur Leukocyte Esterase (Negative) Urine Microscopic RBC (0-3) per hpf Urine Microscopic WBC (0-3) per hpf Ur Squamous Epith Cells (None-Few) per lpf Urine Bacteria (None-Few) per hpf Hyaline Casts (None-Few) per lpf Specimen Rejected - Radiology Data Radiology results reviewed: Yes I reviewed the patient's radiology results. - EKG Data EKG attestation: Yes I reviewed and interpreted this EKG. EKG results narrative: Sinus tachycardia rate 111 [place] 127 QRS 89 QT/QTC 320/386. No acute ST segment elevation. Mild ST segment flattening in the inferior and lateral leads.
[2017-11-09 18:37] LABS: Color,Urine Dark Yellow (Yellow)
[2017-11-09 18:38] LABS: Bilirubin,Urine Negative (Negative); Blood,Urine Trace (Negative); Clarity,Urine Clear (Clear); Glucose,Urine (UA) Normal (Normal); Ketones,Urine Negative (Negative); Leukocyte Esterase,Urine Negative (Negative); Nitrite,Urine Negative (Negative); Protein,Urine 30 mg/dL (Neg-Trace); Specific Gravity,Urine 1.027 (1.010-1.025); Urobilinogen,Urine Normal (Normal)
[2017-11-09 18:40] LABS: Bacteria,Urine None Seen per hpf (None-Few); Hyaline Casts,Urine None Seen per lpf (None-Few); RBC,Urine 0-3 per hpf (0-3); Squamous Epithelial Cell,Urine Many per lpf (None-Few); WBC,Urine 0-3 per hpf (0-3)
[2017-11-09 18:58] LABS: Alanine Aminotransferase 12 Units/L (7-52); Albumin 4.4 g/dL (3.5-5.7); Albumin/Globulin Ratio 1.6 (1.1-2.2); Alkaline Phosphatase 98 Units/L (34-104); Aspartate Amino Transferase 18 Units/L (13-39); BUN/Creatinine Ratio 13 (6-26); Bilirubin,Total 0.9 mg/dL (0.3-1.0); Blood Urea Nitrogen 9 mg/dL (8-23); Calcium 9.1 mg/dL (8.6-10.3); Carbon Dioxide 23 mEq/L (23-29); Chloride 106 mEq/L (98-107); Globulin 2.7 g/dL (2.4-3.5); Glucose 122 mg/dL (70-105); Lipase 6 Units/L (11-82); Magnesium 1.9 mg/dL (1.6-2.6); Osmolality,Calculated 282 (280-300); Sodium 136 mEq/L (136-145); Total Protein 7.1 g/dL (6.4-8.9); eGFR For African Americans > 60 (> 60); eGFR For Non-African Americans > 60 (> 60)
[2017-11-09] MEDS ORDERED: Promethazine 12.5 MG in 0.9 % Sodium Chloride 50 ML IVPB ONE (19:06)
[2017-11-09 19:52] LABS: Basophils % 0.3 %; Hematocrit 44.5 % (35.3-44.9); Hemoglobin 14.3 g/dL (11.5-15.4); Immature Granulocytes % 0.6 % (0-4); Lymphocytes # 1.2 K/mcL (0.6-4.6); Lymphocytes % 9.5 %; Mean Corpuscular HGB Conc 32.1 g/dL (31.6-35.5); Mean Corpuscular Hemoglobin 25.3 pg (28.0-33.3); Mean Corpuscular Volume 78.8 fL (83.0-100.0); Monocytes # 0.5 K/mcL (0.0-1.3); Monocytes % 3.9 %; Neutrophils # 10.8 K/mcL (1.6-8.9); Platelet Count 119 K/mcL (140-400); Red Blood Count 5.65 M/mcL (3.82-4.97); Red Cell Distribution Width 14.7 % (11.5-14.5); Segmented Neutrophils % 85.7 %
--- NOTE | 2017-11-09 21:39 | Emergency Department Note ---
START Narrative - START START: Patient was taken in sign out from the physician Dr. Leiva. Detailed review the presentation symptoms medical intervention and evaluation were discussed. I also conveyed on this information to the hospitalist Dr. Riggins.. He had no other recommendations or concern. Patient will be admitted for surgery criteria with a positive finding classify the patient has sepsis without any acute signs of septic shock. No other acute intervention in this time. Admission process to be completed
--- NOTE | 2017-11-09 21:47 | Internal Med History&Physical ---
Date of Encounter: 11/09/17 Time of Encounter: 21:47 Internal Medicine - H&P: HPI Chief complaint: N/V History of present illness: Ms. Weaver is a 62 year old female with past medical history of hypertension, diabetes mellitus, obesity who presented with epigastric pain as well as nausea and 3 episodes of non-bloody emesis today. On presentation she was tachycardic and hypotensive and met sepsis criteria, as a result, she was started on she was IV hydration and systemic antibiotics. Limited RUQ transabd US revealed GB visualized w/o wall thickening, pericholecystic fluid or intraluminal stones noted. CT abdomen and pelvis ordered and revealed a suspected left lower lobe infiltrate identified on CT abdomen and pelvis. The patient was admitted for further evaluation. Past Med Surg Social Fam HX - Past Medical History Medical history: arthritis, diabetes, GERD, hyperlipidemia Additional medical history: knot in left breast Psychiatric history: anxiety, depression, panic disorder - Past Surgical History Surgical History: breast surgery, hysterectomy Additional surgical history: breast reduction - Social History Smoking Status: Current every day smoker Smokeless Tobacco Status: No Alcohol use: none Drug use: none - Family History Grandmother Living Status: Hx Family Cardiac Disorders: Yes (ND) Hx Family Endocrine Disorder: Yes (DM) Internal Medicine - H&P: Meds Cetirizine HCl [Zyrtec] 10 mg PO QPM 08/08/15 [History] Duloxetine HCl [Cymbalta] 60 mg PO QPM 08/08/15 [History] Fluticasone Propionate Nasal [Flonase] 2 spr NS DAILY 08/08/15 [History] Omeprazole [PriLOSEC] 20 mg PO QAM 08/08/15 [History] SUMAtriptan succinate [Imitrex] 25 mg PO Q2H PRN 08/08/15 [History] ALPRAZolam [Xanax 1 MG Tablet] 1 mg PO TID PRN 05/03/17 [History] Topiramate [Topamax] 25 mg PO DAILY 09/03/17 [History] DULoxetine [Cymbalta] 30 mg PO QAM 11/10/17 [History] Atorvastatin [Lipitor] 80 mg PO HS tablet 11/13/17 [Rx] GuaiFENesin ER [Mucinex] 1,200 mg PO BID 5 Days #20 tbbp.12hr 11/13/17 [Rx] levoFLOXacin [Levaquin] 750 mg PO DAILY 5 Days #5 tablet 11/13/17 [Rx] 3 Allergy/AdvReac Type Severity Reaction Status Date / Time cefdinir [From Omnicef] Allergy Hives Verified 09/03/17 07:46 Sulfa (Sulfonamide Allergy Hives Verified 11/10/17 07:52 Antibiotics) cephlasporin Allergy Mild Confusion Uncoded 08/06/17 16:23 All Systems PM: A 10-system review of systems was performed and is negative for pertinent findings except as documented above in the HPI. - Constitutional Constitutional: malaise, no chills, no fever(s), no night sweats - Cardiovascular Cardiovascular ROS IM: no chest pain, no diaphoresis, no dyspnea, no lightheadedness, no palpitations, no syncope - Respiratory Respiratory: no cough, no dyspnea, no wheezing, no excessive phlegm production - Gastrointestinal Gastrointestinal: nausea, vomiting, no abdominal pain, no diarrhea, no hematemesis, no hematochezia, no melena - Neurological Neurological ROS: no confusion, no convulsions, no focal weakness, no numbness, no tingling, no tremor(s) - Constitutional Vitals: Temp Pulse Resp BP Pulse Ox 99.2 F 109 18 102/71 98 11/09/17 21:26 11/09/17 21:43 11/09/17 21:43 11/09/17 21:43 11/09/17 21:43 General appearance: Present: A&O X 3 - Head Head exam: Present: atraumatic, normocephalic - Neck Neck exam general surgery: Present: supple, trachea midline. Absent: lymphadenopathy - Respiratory Respiratory exam: Present: CTAB. Absent: accessory muscle use, rales, rhonchi, wheezes - Cardiovascular Cardiovascular exam: Present: RRR, +S1, +S2. Absent: diastolic murmur, gallop, rubs, systolic murmur - GI/Abdominal GI/Abdominal exam: Present: normal bowel sounds, soft, no peritoneal signs. Absent: distended, tenderness - Extremities Exam Extremities exam: Present: warm, radial pulses palpable and symmetrical. Absent : calf tenderness, cyanotic, pedal edema Internal Med - H&P Results - Labs CBC & Chem 7: 11/13/17 04:46 11/13/17 04:46 Labs: Short CBC 11/09/17 Range/Units 19:40 WBC 12.6 H (4.3-11.1) K/mcL Hgb 14.3 (11.5-15.4) g/dL Hct 44.5 (35.3-44.9) % Plt Count 119 L (140-400) K/mcL Neutrophils # 10.8 H (1.6-8.9) K/mcL BMP 11/09/17 18:26 Sodium 136 Potassium 4.0 Chloride 106 Carbon Dioxide 23 BUN 9 Creatinine 0.70 Glucose 122 H Calcium 9.1 Liver Function 11/09/17 Range/Units 18:26 Total Bilirubin 0.9 (0.3-1.0) mg/dL AST 18 (13-39) Units/L ALT 12 (7-52) Units/L Alkaline Phosphatase 98 (34-104) Units/L Albumin 4.4 (3.5-5.7) g/dL Urine 11/09/17 Range/Units 18:26 Urine Color Dark Yellow (Yellow) Urine Clarity Clear (Clear) Urine pH 6.0 (5.0-8.0) pH Units Ur Specific [place] 1.027 H (1.010-1.025) Urine Protein 30 H (Neg-Trace) mg/dL Urine Glucose (UA) Normal (Normal) mg/dL - Impressions ITS Impressions Abdomen/Pelvis CT 11/09/17 19:52 IMPRESSION: No acute intra-abdominal process. Left lower lobe consolidation likely pneumonia. 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
[2017-11-09] MEDS ORDERED: Levofloxacin 750 MG/150 ML 750 MG/150 ML BAG IVPB SCH (22:00)
[2017-11-10] MEDS ORDERED: Acetaminophen 325 MG TABLET PO PRN (00:31)
[2017-11-10] MEDS ORDERED: Naloxone 0.4 MG/ML INJ IVP PRN (00:31)
[2017-11-10] MEDS: SUMAtriptan succinate 25 MG TABLET PO PRN ×4 (00:45→23:48)
[2017-11-10 01:21] LABS: Basophils % 0.2 %; Hematocrit 39.4 % (35.3-44.9); Immature Granulocytes % 0.6 % (0-4); Lymphocytes # 1.3 K/mcL (0.6-4.6); Lymphocytes % 12.2 %; Mean Corpuscular HGB Conc 31.5 g/dL (31.6-35.5); Mean Corpuscular Volume 79.4 fL (83.0-100.0); Mean Platelet Volume 12.9 fL (9.4-12.4); Monocytes # 0.4 K/mcL (0.0-1.3); Monocytes % 3.5 %; Platelet Count 110 K/mcL (140-400); Red Blood Count 4.96 M/mcL (3.82-4.97); Red Cell Distribution Width 14.9 % (11.5-14.5); Segmented Neutrophils % 83.5 %
[2017-11-10 01:24] LABS: Hemoglobin 12.4 g/dL (11.5-15.4)
[2017-11-10 01:29] LABS: INR 1.3; Prothrombin Time 14.5 Seconds (9.4-12.1)
[2017-11-10 01:32] LABS: Activated Partial Thrombo Time 30.9 Seconds (26.0-36.0)
[2017-11-10 01:40] LABS: Chol/HDL Ratio 2.9 (0-4.9)
[2017-11-10] MEDS: Ondansetron 4 MG/2 ML VIAL IVP PRN ×3 (02:32→20:02)
[2017-11-10] MEDS: 0.9 % Sodium Chloride 1,000 ML IVC SCH ×2 (02:33→10:58)
[2017-11-10] MEDS: *HR* Heparin 5,000 UNIT/ML VIAL SQ SCH ×2 (05:06→17:00)
[2017-11-10] MEDS: *HR* HYDROcodone/Acet 5/325 mg TABLET PO PRN (05:06)
[2017-11-10 07:03] LABS: Troponin I < 0.03 ng/mL (< 0.04)
[2017-11-10] MEDS: Topiramate 25 MG TABLET PO SCH ×2 (09:30→11:30)
[2017-11-10] MEDS: Levofloxacin 750 MG/150 ML 750 MG/150 ML BAG IVPB SCH (09:42)
[2017-11-10 10:56] LABS: Alanine Aminotransferase 11 Units/L (7-52); Albumin 3.7 g/dL (3.5-5.7); Albumin/Globulin Ratio 1.6 (1.1-2.2); Alkaline Phosphatase 79 Units/L (34-104); Aspartate Amino Transferase 13 Units/L (13-39); BUN/Creatinine Ratio 16 (6-26); Bilirubin,Total 0.8 mg/dL (0.3-1.0); Blood Urea Nitrogen 9 mg/dL (8-23); Calcium 8.3 mg/dL (8.6-10.3); Carbon Dioxide 20 mEq/L (23-29); Chloride 107 mEq/L (98-107); Globulin 2.3 g/dL (2.4-3.5); Glucose 119 mg/dL (70-105); Magnesium 1.7 mg/dL (1.6-2.6); Osmolality,Calculated 284 (280-300); Potassium 3.3 mEq/L (3.5-5.1); Sodium 137 mEq/L (136-145); eGFR For African Americans > 60 (> 60); eGFR For Non-African Americans > 60 (> 60)
[2017-11-10] MEDS: Fluticasone Propionate Nasal 50 MCG/SPRAY BOTTLE NS SCH (11:23)
[2017-11-10] MEDS: ALPRAZolam 1 MG TABLET PO PRN (15:06)
--- NOTE | 2017-11-10 16:25 | Electrocardiograph Report ---
[address] [address] Test Date: 2017-11-09 Pat Name: Miladis Weaver Department: 104 Room: 2A Gender: F Manager Travel: KINDRA : 1955 Requested By: Joey Leiva Order Number: [id number] Reading MD: Falguni Lara Measurements Intervals [place] Rate: 111 P: 69 ID: [id number] QRS: -41 QRSD: 89 T: 41 QT: 320 QTc: 386 Interpretive Statements SINUS TACHYCARDIA Electronically Signed On 11-10-2017 16:24:04 EDT by Falguni Lara
[2017-11-10] MEDS: Sennosides/Docusate Sodium TABLET PO SCH ×2 (16:31→20:02)
[2017-11-10 16:52] LABS: Influenza A PCR Negative (Negative); Influenza B PCR Negative (Negative); Resp. Syncytial Virus PCR Negative (Negative)
[2017-11-10] MEDS: Loratadine 10 MG TABLET PO SCH (17:00)
[2017-11-10] MEDS ORDERED: *HR* LORazepam 2 MG/ML VIAL IVP ONE (21:01)
--- NOTE | 2017-11-10 23:22 | Internal Med Progress Note ---
Date of Encounter: 11/10/17 Time of Encounter: 23:22 - Assessment and plan (1) PNA (pneumonia) Current Visit: Yes Status: Acute (2) Tension headache Current Visit: Yes Status: Acute (3) Intractable nausea and vomiting Current Visit: No Status: Resolved Qualifiers: Vomiting type: unspecified Qualified Code(s): R11.2 - Nausea with vomiting , unspecified (4) Nausea and vomiting Current Visit: Yes Status: Acute Qualifiers: Vomiting type: unspecified Vomiting Intractability: non-intractable Qualified Code(s): R11.2 - Nausea with vomiting, unspecified (5) GERD (gastroesophageal reflux disease) Current Visit: Yes Status: Acute (6) Bipolar disorder Current Visit: Yes Status: Acute - Time Spent With Patient Total time spent is greater than 50% in coordination of care (as documented) at patient's floor/unit and/or counseling patient: 25 - 35 minutes - Constitutional Vitals: Temp Pulse Resp BP Pulse Ox 97.5 F L 104 16 107/65 92 11/10/17 19:56 11/10/17 19:56 11/10/17 19:56 11/10/17 19:56 11/10/17 19:56 General appearance: Present: A&O X 3 Internal Medicine: Result - Labs CBC & Chem 7: 11/10/17 01:06 11/10/17 06:29 Labs: BMP 11/10/17 06:29 Sodium 137 Potassium 3.3 L Chloride 107 Carbon Dioxide 20 L BUN 9 Creatinine 0.57 L Glucose 119 H Calcium 8.3 L Cardiac Enzymes 11/10/17 11/10/17 Range/Units 06:29 13:30 Troponin I < 0.03 < 0.03 (< 0.04) ng/mL Liver Function 11/10/17 Range/Units 06:29 Total Bilirubin 0.8 (0.3-1.0) mg/dL AST 13 (13-39) Units/L ALT 11 (7-52) Units/L Alkaline Phosphatase 79 (34-104) Units/L Albumin 3.7 (3.5-5.7) g/dL - ABG Interpretation ABG results: PT/INR, D-dimer PT 14.5 Seconds (9.4-12.1) H 11/10/17 01:06 - VTE Documentation of Mechanical Device: Intermittent pneumatic compression device Consult Discharge Plan - Plan Referrals: Andriy Campos DO [Primary Care Provider] -
[2017-11-11] MEDS: *HR* HYDROcodone/Acet 5/325 mg TABLET PO PRN ×3 (01:21→19:55)
[2017-11-11] MEDS: *HR* Heparin 5,000 UNIT/ML VIAL SQ SCH ×2 (05:17→18:20)
[2017-11-11 07:21] LABS: Basophils % 0.3 %; Eosinophils % 0.3 %
[2017-11-11 07:23] LABS: Hematocrit 37.8 % (35.3-44.9); Hemoglobin 11.8 g/dL (11.5-15.4); Immature Granulocytes % 1.1 % (0-4); Immature Platelets 11.6 % (1.1-6.1); Lymphocytes # 1.2 K/mcL (0.6-4.6); Lymphocytes % 16.8 %; Mean Corpuscular HGB Conc 31.2 g/dL (31.6-35.5); Mean Corpuscular Volume 80.1 fL (83.0-100.0); Mean Platelet Volume 12.7 fL (9.4-12.4); Monocytes # 0.5 K/mcL (0.0-1.3); Monocytes % 6.8 %; Red Blood Count 4.72 M/mcL (3.82-4.97); Red Cell Distribution Width 14.8 % (11.5-14.5); Segmented Neutrophils % 74.7 %
[2017-11-11 07:40] LABS: BUN/Creatinine Ratio 18 (6-26); Blood Urea Nitrogen 10 mg/dL (8-23); Calcium 8.7 mg/dL (8.6-10.3); Carbon Dioxide 23 mEq/L (23-29); Chloride 108 mEq/L (98-107); Glucose 92 mg/dL (70-105); Osmolality,Calculated 283 (280-300); Potassium 3.5 mEq/L (3.5-5.1); Sodium 137 mEq/L (136-145); eGFR For African Americans > 60 (> 60); eGFR For Non-African Americans > 60 (> 60)
[2017-11-11 07:47] LABS: Neutrophils # 5.5 K/mcL (1.6-8.9); Platelet Count 83 K/mcL (140-400)
[2017-11-11] MEDS: Sennosides/Docusate Sodium TABLET PO SCH ×2 (08:26→19:55)
[2017-11-11] MEDS: Topiramate 25 MG TABLET PO SCH (08:26)
[2017-11-11] MEDS: Fluticasone Propionate Nasal 50 MCG/SPRAY BOTTLE NS SCH (08:27)
[2017-11-11] MEDS: Levofloxacin 750 MG/150 ML 750 MG/150 ML BAG IVPB SCH (08:27)
[2017-11-11] MEDS ORDERED: Acetaminophen/Butalbital/CaffeineTABLET PO STA (13:19)
--- NOTE | 2017-11-11 13:31 | Internal Med Progress Note ---
Date of Encounter: 11/11/17 Time of Encounter: 13:29 - Assessment and plan (1) Sepsis due to pneumonia Current Visit: Yes Status: Acute Assessment and plan: Sepsis resolved. WBC normalized. Follow up on final blood and sputum cultures. Continue IV levaquin; transition to PO tomorrow. Continue home claritin. Start guaifenesin ER 1200 mg BID. Up to chair and ambulate TID with assistance. Supplemental O2 PRN; wean to room air as tolerated. Tylenol PRN pain/fever. Recheck labwork in AM. (2) Headache Current Visit: Yes Status: Acute Assessment and plan: History of migraine headaches. Continue home topamax and triptan PRN. Continue tylenol PRN pain. Give one time benadryl and fioricet. Qualifiers: Headache type: unspecified Headache chronicity pattern: acute headache Intractability: intractable Qualified Code(s): R51 - Headache (3) T2DM (type 2 diabetes mellitus) Current Visit: Yes Status: Chronic Assessment and plan: Continue diabetic diet. Qualifiers: Diabetes mellitus [facility] insulin use: without [facility] use Diabetes mellitus complication status: without complication Qualified Code(s): E11.9 - Type 2 diabetes mellitus without complications (4) Hyperlipidemia Current Visit: Yes Status: Chronic Assessment and plan: Continue home medications. Qualifiers: Hyperlipidemia type: mixed hyperlipidemia Qualified Code(s): E78.2 - Mixed hyperlipidemia (5) Essential hypertension Current Visit: Yes Status: Chronic Assessment and plan: Mild hypotension. No home anti-hypertensives. Continue to monitor vitals. (6) DVT prophylaxis Current Visit: Yes Status: Acute Assessment and plan: Continue SQ heparin. - Time Spent With Patient Total time spent is greater than 50% in coordination of care (as documented) at patient's floor/unit and/or counseling patient: less than 15 minutes - Subjective Interval history: Patient had no acute events overnight. She states that she feels "sick." She has headache and cough. Traces of blood noted in coughed up mucus. She denies fever, chills, chest pain, SOB, nausea, vomiting, abdominal pain, changes in bladder, and changes in bowels. She has no other complaints at this time. - Constitutional Vitals: Temp Pulse Resp BP Pulse Ox 98.0 F 82 18 93/60 95 11/11/17 11:07 11/11/17 11:07 11/11/17 11:07 11/11/17 11:07 11/11/17 11:07 General appearance: Present: cooperative, mild distress (Headache), A&O X 3, obese, answers questions appropriately - Head Head exam: Present: atraumatic, normal inspection, normocephalic - Eye Eye exam: Present: EOMI, PERRL. Absent: conjunctival injection, nystagmus, scleral icterus - Respiratory Respiratory exam: Present: CTAB. Absent: accessory muscle use, rales, rhonchi, wheezes Additional comments: Normal WOB - Cardiovascular Cardiovascular exam: Present: RRR, +S1, +S2. Absent: diastolic murmur, gallop, rubs, systolic murmur Additional comments: No BLE edema - GI/Abdominal GI/Abdominal exam: Present: normal bowel sounds, soft. Absent: distended, hepatomegaly, mass, splenomegaly, tenderness - Neurological Exam Neurological exam: Present: alert, CN II-XII intact, oriented X3, no focal deficits, strengths equal and symetr throughout. Absent: motor sensory deficit - Psychiatric Psychiatric exam: Present: normal affect, normal mood. Absent: agitated, anxious, depressed - Skin Skin exam: Present: dry, intact, warm. Absent: cyanosis, rash Internal Medicine: Result - Labs CBC & Chem 7: 11/11/17 06:24 11/11/17 06:24 Labs: Short CBC 11/11/17 Range/Units 06:24 WBC 7.3 (4.3-11.1) K/mcL Hgb 11.8 (11.5-15.4) g/dL Hct 37.8 (35.3-44.9) % Plt Count 83 L (140-400) K/mcL Neutrophils # 5.5 (1.6-8.9) K/mcL BMP 11/11/17 06:24 Sodium 137 Potassium 3.5 Chloride 108 H Carbon Dioxide 23 BUN 10 Creatinine 0.55 L Glucose 92 Calcium 8.7 Cardiac Enzymes 11/10/17 Range/Units 13:30 Troponin I < 0.03 (< 0.04) ng/mL - ABG Interpretation ABG results: PT/INR, D-dimer PT 14.5 Seconds (9.4-12.1) H 11/10/17 01:06 - Impressions Impressions Chest X-Ray 11/10/17 20:51 IMPRESSION: Moderate left basilar increased opacity likely representing pneumonia. Follow-up to resolution is recommended. D/ / Anabell Felder Cha, MD / Anabell Felder Cha, MD Interpreting Provider: Anabell Felder Cha, MD - VTE Documentation of Mechanical Device: Intermittent pneumatic compression device Consult Discharge Plan - Plan Referrals: Andriy Campos DO [Primary Care Provider] -
[2017-11-11] MEDS: Ondansetron 4 MG/2 ML VIAL IVP PRN (14:12)
[2017-11-11] MEDS: Loratadine 10 MG TABLET PO SCH (18:20)
[2017-11-11] MEDS: Ondansetron ODT 4 MG TAB.RAPDIS SL PRN (21:02)
[2017-11-12] MEDS: SUMAtriptan succinate 25 MG TABLET PO PRN ×2 (00:41→09:21)
[2017-11-12] MEDS: ALPRAZolam 1 MG TABLET PO PRN ×2 (02:58→17:38)
[2017-11-12 05:19] LABS: Basophils % 0.4 %; Eosinophils % 0.2 %; Red Cell Distribution Width 14.7 % (11.5-14.5)
[2017-11-12 05:21] LABS: Hematocrit 37.6 % (35.3-44.9); Immature Granulocytes % 1.1 % (0-4); Lymphocytes # 1.2 K/mcL (0.6-4.6); Lymphocytes % 21.8 %; Mean Corpuscular HGB Conc 31.9 g/dL (31.6-35.5); Mean Corpuscular Hemoglobin 24.8 pg (28.0-33.3); Mean Corpuscular Volume 77.8 fL (83.0-100.0); Mean Platelet Volume 13.1 fL (9.4-12.4); Monocytes # 0.4 K/mcL (0.0-1.3); Monocytes % 6.6 %; Neutrophils # 3.8 K/mcL (1.6-8.9); Red Blood Count 4.83 M/mcL (3.82-4.97); Segmented Neutrophils % 69.9 %
[2017-11-12 05:32] LABS: Platelet Count 82 K/mcL (140-400)
[2017-11-12] MEDS: *HR* HYDROcodone/Acet 5/325 mg TABLET PO PRN ×3 (05:42→20:29)
[2017-11-12] MEDS: Ondansetron ODT 4 MG TAB.RAPDIS SL PRN ×2 (05:42→13:24)
[2017-11-12] MEDS: *HR* Heparin 5,000 UNIT/ML VIAL SQ SCH ×2 (05:43→17:34)
[2017-11-12 06:11] LABS: Large Platelets Present (Not Present); Platelet Estimate Decreased (Normal)
[2017-11-12 07:15] LABS: BUN/Creatinine Ratio 18 (6-26); Blood Urea Nitrogen 10 mg/dL (8-23); Calcium 8.7 mg/dL (8.6-10.3); Carbon Dioxide 23 mEq/L (23-29); Chloride 105 mEq/L (98-107); Glucose 91 mg/dL (70-105); Osmolality,Calculated 281 (280-300); Potassium 3.5 mEq/L (3.5-5.1); Sodium 136 mEq/L (136-145); eGFR For African Americans > 60 (> 60); eGFR For Non-African Americans > 60 (> 60)
[2017-11-12] MEDS: Topiramate 25 MG TABLET PO SCH (09:21)
[2017-11-12] MEDS: Sennosides/Docusate Sodium TABLET PO SCH ×2 (09:21→20:29)
[2017-11-12] MEDS: levoFLOXacin 750 MG TABLET PO SCH (09:21)
[2017-11-12] MEDS: Fluticasone Propionate Nasal 50 MCG/SPRAY BOTTLE NS SCH (09:24)
--- NOTE | 2017-11-12 12:28 | Internal Med Progress Note ---
Date of Encounter: 11/12/17 Time of Encounter: 12:24 - Assessment and plan (1) Sepsis due to pneumonia Current Visit: Yes Status: Acute Assessment and plan: Sepsis resolved. WBC normalized. Follow up on final blood and sputum cultures. Continue PO levaquin. Continue home claritin. Continue guaifenesin ER 1200 mg BID. Up to chair and ambulate TID with assistance. Supplemental O2 PRN; wean to room air as tolerated. Tylenol PRN pain/fever. She is still requiring some supplemental O2 and still with significant cough. Will try duonebs and mucomyst inhaled today. Will continue to wean to room air as tolerated today. Recheck labwork in AM. Plan for discharge home tomorrow on PO levaquin if off supplemental O2 and cough improved. (2) Headache Current Visit: Yes Status: Chronic Assessment and plan: Improved. History of migraine headaches. Continue home topamax and triptan PRN. Continue tylenol PRN pain. Qualifiers: Headache type: unspecified Headache chronicity pattern: acute headache Intractability: intractable Qualified Code(s): R51 - Headache (3) T2DM (type 2 diabetes mellitus) Current Visit: Yes Status: Chronic Assessment and plan: Continue diabetic diet. Qualifiers: Diabetes mellitus professor of biology insulin use: without alf use Diabetes mellitus complication status: without complication Qualified Code(s): E11.9 - Type 2 diabetes mellitus without complications (4) Hyperlipidemia Current Visit: Yes Status: Chronic Assessment and plan: Continue home medications. Qualifiers: Hyperlipidemia type: mixed hyperlipidemia Qualified Code(s): E78.2 - Mixed hyperlipidemia (5) Essential hypertension Current Visit: Yes Status: Chronic Assessment and plan: Mild hypotension, slightly improved. No home anti-hypertensives. Continue to monitor vitals. (6) DVT prophylaxis Current Visit: Yes Status: Acute Assessment and plan: Continue SQ heparin. - Time Spent With Patient Total time spent is greater than 50% in coordination of care (as documented) at patient's floor/unit and/or counseling patient: less than 15 minutes - Subjective Interval history: Patient had no acute events overnight. She states that she still feels "sick." She states headache is little better. She still has significant cough with traces of blood noted in coughed up mucus. She denies fever, chills, chest pain , SOB, nausea, vomiting, abdominal pain, changes in bladder, and changes in bowels. She has no other complaints at this time. - Constitutional Vitals: Temp Pulse Resp BP Pulse Ox 98.4 F 85 20 102/70 91 11/12/17 10:47 11/12/17 10:47 11/12/17 10:47 11/12/17 10:47 11/12/17 10:47 General appearance: Present: cooperative, A&O X 3, no acute distress, obese, answers questions appropriately - Respiratory Respiratory exam: Present: CTAB. Absent: accessory muscle use, rales, rhonchi, wheezes Additional comments: Normal WOB - Cardiovascular Cardiovascular exam: Present: RRR, +S1, +S2. Absent: diastolic murmur, gallop, rubs, systolic murmur Additional comments: No BLE edema - GI/Abdominal GI/Abdominal exam: Present: normal bowel sounds, soft. Absent: distended, hepatomegaly, mass, splenomegaly, tenderness - Psychiatric Psychiatric exam: Present: normal affect, normal mood. Absent: agitated, anxious, depressed - Skin Skin exam: Present: dry, intact, warm. Absent: cyanosis, rash Internal Medicine: Result - Labs CBC & Chem 7: 11/12/17 05:01 11/12/17 06:15 Labs: Short CBC 11/12/17 Range/Units 05:01 WBC 5.4 (4.3-11.1) K/mcL Hgb 12.0 (11.5-15.4) g/dL Hct 37.6 (35.3-44.9) % Plt Count 82 L (140-400) K/mcL Neutrophils # 3.8 (1.6-8.9) K/mcL BMP 11/12/17 06:15 Sodium 136 Potassium 3.5 Chloride 105 Carbon Dioxide 23 BUN 10 Creatinine 0.57 L Glucose 91 Calcium 8.7 - ABG Interpretation ABG results: PT/INR, D-dimer PT 14.5 Seconds (9.4-12.1) H 11/10/17 01:06 Consult Discharge Plan - Plan Referrals: Andriy Camops DO [Primary Care Provider] - (web request 11/12/2017)
[2017-11-12] MEDS: Ipratropium/Albuterol Neb 3 ML IH SCH ×2 (15:47→22:31)
[2017-11-12] MEDS: Acetylcysteine 10% 2 ML INHSOL IH SCH ×2 (15:47→22:31)
[2017-11-12] MEDS: Loratadine 10 MG TABLET PO SCH (17:34)
[2017-11-13] MEDS: *HR* HYDROcodone/Acet 5/325 mg TABLET PO PRN ×2 (03:16→09:26)
[2017-11-13] MEDS: Ondansetron ODT 4 MG TAB.RAPDIS SL PRN (03:16)
[2017-11-13 05:21] LABS: Basophils % 0.5 %; Hematocrit 36.1 % (35.3-44.9); Hemoglobin 11.7 g/dL (11.5-15.4); Immature Granulocytes % 1.2 % (0-4); Lymphocytes % 26.5 %; Mean Corpuscular HGB Conc 32.4 g/dL (31.6-35.5); Mean Corpuscular Hemoglobin 25.1 pg (28.0-33.3); Mean Corpuscular Volume 77.3 fL (83.0-100.0); Monocytes # 0.4 K/mcL (0.0-1.3); Monocytes % 8.5 %; Platelet Count 134 K/mcL (140-400); Red Blood Count 4.67 M/mcL (3.82-4.97); Red Cell Distribution Width 14.6 % (11.5-14.5); Segmented Neutrophils % 63.3 %
[2017-11-13 05:22] LABS: Lymphocytes # 1.1 K/mcL (0.6-4.6); Neutrophils # 2.7 K/mcL (1.6-8.9)
[2017-11-13] MEDS: *HR* Heparin 5,000 UNIT/ML VIAL SQ SCH (05:32)
[2017-11-13 05:43] LABS: BUN/Creatinine Ratio 18 (6-26); Blood Urea Nitrogen 10 mg/dL (8-23); Calcium 8.6 mg/dL (8.6-10.3); Carbon Dioxide 22 mEq/L (23-29); Chloride 105 mEq/L (98-107); Glucose 113 mg/dL (70-105); Osmolality,Calculated 284 (280-300); Potassium 3.4 mEq/L (3.5-5.1); Sodium 137 mEq/L (136-145); eGFR For African Americans > 60 (> 60); eGFR For Non-African Americans > 60 (> 60)
[2017-11-13 05:52] LABS: Platelet Estimate Normal (Normal)
[2017-11-13] MEDS: Ipratropium/Albuterol Neb 3 ML IH SCH (07:22)
[2017-11-13] MEDS: Acetylcysteine 10% 2 ML INHSOL IH SCH (07:23)
[2017-11-13] MEDS: Sennosides/Docusate Sodium TABLET PO SCH (09:25)
[2017-11-13] MEDS: levoFLOXacin 750 MG TABLET PO SCH (09:26)
[2017-11-13] MEDS: Topiramate 25 MG TABLET PO SCH (09:27)
[2017-11-13] MEDS: Fluticasone Propionate Nasal 50 MCG/SPRAY BOTTLE NS SCH (09:27)
--- NOTE | 2017-11-13 10:26 | Discharge Summary ---
- NOTES TO OUTPATIENT PROVIDER Notes to Outpatient Provider: Follow up with PCP in 2-3 days after discharge. Recheck BMP and CBC at that time. Repeat CT chest once pneumonia resolved and if still having hemoptysis. Date of Encounter: 11/13/17 Time of Encounter: 10:23 - Discharge Diagnosis (1) Sepsis due to pneumonia Priority: Primary Status: Acute (2) Headache Priority: Secondary Status: Resolved Qualifiers: Headache type: unspecified Headache chronicity pattern: acute headache Intractability: intractable Qualified Code(s): R51 - Headache (3) T2DM (type 2 diabetes mellitus) Priority: Secondary Status: Chronic Qualifiers: Diabetes mellitus group home insulin use: without group home use Diabetes mellitus complication status: without complication Qualified Code(s): E11.9 - Type 2 diabetes mellitus without complications (4) Hyperlipidemia Priority: Secondary Status: Chronic Qualifiers: Hyperlipidemia type: mixed hyperlipidemia Qualified Code(s): E78.2 - Mixed hyperlipidemia (5) Essential hypertension Priority: Secondary Status: Chronic (6) DVT prophylaxis Priority: Secondary Status: Acute Hospital course: Ms. Weaver is a 62 year old female admitted for sepsis secondary to pneumonia. Patient was admitted to general medical floor with telemetry. She was started on IVF and IV levaquin. Sepsis resolved and WBC normalized with treatment. She has significant cough that was treated with guaifenesin and nebs. She has some hemoptysis, so CT chest was obtained. CT chest showed pneumonia, but underlying neoplasm could not be ruled out until pneumonia resolved. She had mild hypokalemia that was repleted. She had headache that resolved with home migraine medications. Patient will complete 10 days total of levaquin. She will follow up with PCP in 2-3 days after discharge. They can repeat BMP and CBC. After resolution of pneumonia, PCP can determine if repeat CT chest is necessary if she continues to have hemoptysis. Patient has met maximum benefit of this hospitalization and will be discharged home in stable condition. Discharge discussed with: patient, nurse, other (Pharmacist) - Time Spent with Patient Total time spent providing and/or coordinating discharge services: Greater than 30 minutes - Discharge Medications Prescriptions: GuaiFENesin ER [Mucinex] 1,200 mg PO BID 5 Days #20 tbbp.12hr levoFLOXacin [Levaquin] 750 mg PO DAILY 5 Days #5 tablet Home Medications: Cetirizine HCl [Zyrtec] 10 mg PO QPM 08/08/15 [History] Duloxetine HCl [Cymbalta] 60 mg PO QPM 08/08/15 [History] Fluticasone Propionate Nasal [Flonase] 2 spr NS DAILY 08/08/15 [History] Omeprazole [PriLOSEC] 20 mg PO QAM 08/08/15 [History] SUMAtriptan succinate [Imitrex] 25 mg PO Q2H PRN 08/08/15 [History] ALPRAZolam [Xanax 1 MG Tablet] 1 mg PO TID PRN 05/03/17 [History] Topiramate [Topamax] 25 mg PO DAILY 09/03/17 [History] DULoxetine [Cymbalta] 30 mg PO QAM 11/10/17 [History] Atorvastatin [Lipitor] 80 mg PO HS tablet 11/13/17 [Rx] GuaiFENesin ER [Mucinex] 1,200 mg PO BID 5 Days #20 tbbp.12hr 11/13/17 [Rx] levoFLOXacin [Levaquin] 750 mg PO DAILY 5 Days #5 tablet 11/13/17 [Rx] Allergies/Adverse Reactions: 3 Allergy/AdvReac Type Severity Reaction Status Date / Time cefdinir [From Omnicef] Allergy Hives Verified 09/03/17 07:46 Sulfa (Sulfonamide Allergy Hives Verified 11/10/17 07:52 Antibiotics) cephlasporin Allergy Mild Confusion Uncoded 08/06/17 16:23 Date of admission: 11/10/17 01:32 Primary care physician: Andriy Campos DO Consults: 11/12/17 12:23 Consult to Respiratory Therapy [CONS] Routine Reason for Consult: Pneumonia Call Completed: No Discharging clinician: Murphy Thompson Anticipated date of discharge: 11/13/17 - Constitutional Vitals: Temp Pulse Resp BP Pulse Ox 98.1 F 77 16 112/72 94 11/13/17 07:15 11/13/17 07:15 11/13/17 07:22 11/13/17 07:15 11/13/17 07:22 General appearance: Present: cooperative, A&O X 3, no acute distress, obese, answers questions appropriately - Respiratory Respiratory exam: Present: CTAB. Absent: accessory muscle use, rales, rhonchi, wheezes Additional comments: Normal WOB - Cardiovascular Cardiovascular exam: Present: RRR, +S1, +S2. Absent: diastolic murmur, gallop, rubs, systolic murmur Additional comments: No BLE edema - GI/Abdominal GI/Abdominal exam: Present: normal bowel sounds, soft. Absent: distended, hepatomegaly, mass, splenomegaly, tenderness - Psychiatric Psychiatric exam: Present: normal affect, normal mood. Absent: agitated, anxious, depressed - Skin Skin exam: Present: dry, intact, warm. Absent: cyanosis, rash - Patient Status Disposition: Home, Self-Care Condition: Good Overall status at discharge: patient is progressing back to baseline - Discharge Instructions Follow Up With: Andriy Campos DO [Primary Care Provider] - (web request 11/12/2017) Additional Instructions: Follow up with PCP in 2-3 days after discharge. Recheck BMP and CBC at that time. Repeat CT chest once pneumonia resolved and if still having hemoptysis. - Diet and Activity Activity: resume usual activities as tolerated Diet: diabetic diet, low fat, low cholesterol, low salt diet, other (Cardiac Diet)
[2017-11-13] MEDS ORDERED: 0.9 % Sodium Chloride 1,000 ML IVC ONE (10:27)
[2017-11-13] MEDS ORDERED: Bisacodyl 10 MG RECTAL SUPPOSITORY RC STA (11:13)
[2017-11-13 13:51] VITALS: BP 99/65
== END 2017-11-13 14:30 | disposition home or self-care (01) | DRG 720 ==
LOC: 2ANU 17:55 → EMEROO 17:55 → 2ANU 22:38 → SUATTDRO 11-10 01:32
PROVIDERS: ADMIT Internal Medicine; ATTEND Internal Medicine

== ENCOUNTER 2019-03-28 13:35 | Observation (INO) ==
[2019-03-28] MEDS ORDERED: Famotidine 20 MG/2 ML VIAL IVP ONE (14:20)
[2019-03-28] MEDS ORDERED: GI Cocktail 40 ML EACH PO ONE (14:20)
[2019-03-28 14:49] LABS: Basophils % 0.4 %; Eosinophils % 0.2 %; Hematocrit 37.9 % (35.3-44.9); Hemoglobin 12.3 g/dL (11.5-15.4); Immature Granulocytes % 0.4 % (0-4); Lymphocytes # 1.8 K/mcL (0.6-4.6); Lymphocytes % 36.5 %; Mean Corpuscular HGB Conc 32.5 g/dL (31.6-35.5); Mean Corpuscular Hemoglobin 25.8 pg (28.0-33.3); Mean Corpuscular Volume 79.5 fL (83.0-100.0); Mean Platelet Volume 12.4 fL (9.4-12.4); Monocytes # 0.3 K/mcL (0.0-1.3); Monocytes % 5.6 %; Neutrophils # 2.7 K/mcL (1.6-8.9); Platelet Count 119 K/mcL (140-400); Red Blood Count 4.77 M/mcL (3.82-4.97); Red Cell Distribution Width 15.4 % (11.5-14.5); Segmented Neutrophils % 56.9 %; White Blood Count 4.8 K/mcL (4.3-11.1)
[2019-03-28 15:14] LABS: Alanine Aminotransferase 11 Units/L (7-52); Albumin 3.9 g/dL (3.5-5.7); Albumin/Globulin Ratio 1.8 (1.1-2.2); Alkaline Phosphatase 83 Units/L (34-104); Aspartate Amino Transferase 14 Units/L (13-39); Bilirubin,Direct 0.1 mg/dL (0.0-0.2); Bilirubin,Indirect 0.3 mg/dL (0.0-1.0); Bilirubin,Total 0.4 mg/dL (0.3-1.0); Globulin 2.2 g/dL (2.4-3.5); Lipase 15 Units/L (11-82); Total Protein 6.1 g/dL (6.4-8.9); Troponin I < 0.03 ng/mL (< 0.04)
[2019-03-28 15:32] LABS: BUN/Creatinine Ratio 13 (6-26); Blood Urea Nitrogen 8 mg/dL (8-23); Calcium 8.8 mg/dL (8.6-10.3); Carbon Dioxide 24 mEq/L (23-29); Chloride 109 mEq/L (98-107); Glucose 85 mg/dL (70-105); Osmolality,Calculated 288 (280-300); Potassium 3.8 mEq/L (3.5-5.1); Sodium 140 mEq/L (136-145); eGFR For African Americans > 60 (> 60); eGFR For Non-African Americans > 60 (> 60)
[2019-03-28] MEDS ORDERED: Aspirin 81 MG TAB.CHEW PO ONE (15:39)
[2019-03-28] MEDS ORDERED: Nitroglycerin 1 INCH/GM PACKET TP ONE (15:40)
[2019-03-28] MEDS ORDERED: Isovue-370 500 ML BOTTLE IVP ONE ×2 (17:23→17:57)
[2019-03-28] MEDS ORDERED: Naloxone 0.4 MG/ML INJ IVP PRN (17:59)
[2019-03-28] MEDS ORDERED: Nitroglycerin 0.4 MG TAB.SUBL SL PRN (18:05)
[2019-03-28] MEDS: Pantoprazole 40 MG VIAL IVP SCH (19:43)
[2019-03-28] MEDS: Ringers Solution, Lactated 1,000 ML IVC SCH (19:44)
[2019-03-28] MEDS ORDERED: *HR* Dextrose 50 % in Water (Syg) 50 ML SYRINGE IVP PRN (21:32)
[2019-03-28] MEDS ORDERED: D5% in Water 1,000 ML IVC PRN (21:32)
[2019-03-28] MEDS ORDERED: Dextrose Gel 15 GM/37.5 ML TUBE PO PRN ×2 (21:32)
[2019-03-29 03:20] LABS: Basophils % 0.2 %; Eosinophils % 0.2 %; Hematocrit 35.9 % (35.3-44.9); Hemoglobin 11.1 g/dL (11.5-15.4); Immature Granulocytes % 0.2 % (0-4); Lymphocytes # 1.9 K/mcL (0.6-4.6); Lymphocytes % 41.7 %; Mean Corpuscular HGB Conc 30.9 g/dL (31.6-35.5); Mean Corpuscular Hemoglobin 25.3 pg (28.0-33.3); Mean Corpuscular Volume 81.8 fL (83.0-100.0); Mean Platelet Volume 12.1 fL (9.4-12.4); Monocytes # 0.3 K/mcL (0.0-1.3); Neutrophils # 2.3 K/mcL (1.6-8.9); Platelet Count 106 K/mcL (140-400); Red Blood Count 4.39 M/mcL (3.82-4.97); Red Cell Distribution Width 15.5 % (11.5-14.5); Segmented Neutrophils % 50.7 %; White Blood Count 4.6 K/mcL (4.3-11.1)
[2019-03-29 03:41] LABS: % Iron Saturation 15 % (15-50); BUN/Creatinine Ratio 11 (6-26); Blood Urea Nitrogen 7 mg/dL (8-23); Calcium 8.3 mg/dL (8.6-10.3); Carbon Dioxide 24 mEq/L (23-29); Chloride 112 mEq/L (98-107); Chol/HDL Ratio 3.2 (0-4.9); Cholesterol 136 mg/dL (< 200); Glucose 88 mg/dL (70-105); HDL Cholesterol 43 mg/dL (40-59); Iron 48 mcg/dL (50-170); LDL Cholesterol,Calculated 67 mg/dL (0-99); Osmolality,Calculated 289 (280-300); Potassium 3.4 mEq/L (3.5-5.1); Sodium 141 mEq/L (136-145); Transferrin 232 mg/dL (203-362); Triglycerides 128 mg/dL (< 150); eGFR For African Americans > 60 (> 60); eGFR For Non-African Americans > 60 (> 60)
[2019-03-29 04:00] LABS: Ferritin 33 ng/mL (10-120)
[2019-03-29] MEDS: *HR* Heparin 5,000 UNIT/ML VIAL SQ SCH ×2 (08:27→17:53)
[2019-03-29] MEDS: Pantoprazole 40 MG VIAL IVP SCH (08:27)
[2019-03-29] MEDS: Ondansetron 4 MG/2 ML VIAL IVP PRN ×2 (08:29→16:56)
[2019-03-29] MEDS ORDERED: Regadenoson 0.4 MG/5 ML SYRINGE IVP ONE (08:34)
[2019-03-29] MEDS ORDERED: *HR* Promethazine 25 MG/ML VIAL IVP PRN (10:23)
[2019-03-29] MEDS: Ringers Solution, Lactated 1,000 ML IVC SCH (11:11)
[2019-03-29] MEDS ORDERED: Lidocaine -MPF 2% 5 ML VIAL ONE (13:24)
[2019-03-29] MEDS ORDERED: *HR* Succinylcholine 200 MG/10 ML VIAL IVP ONE (13:25)
[2019-03-29] MEDS ORDERED: ALPRAZolam 1 MG TABLET PO PRN (15:02)
[2019-03-29] MEDS ORDERED: Fluticasone Propionate Nasal 50 MCG/SPRAY BOTTLE NS PRN (15:02)
[2019-03-29] MEDS ORDERED: *HR* Midazolam HCl 5 MG/5 ML VIAL IVP ONE ×2 (16:58→17:31)
[2019-03-29] MEDS ORDERED: *HR* FentaNYL (PF) 100 MCG/2 ML VIAL ONE (16:58)
[2019-03-29] MEDS ORDERED: *HR* FentaNYL (PF) 100 MCG/2 ML VIAL IVP ONE (17:31)
[2019-03-29] MEDS ORDERED: Tetracaine/Benzocaine/Butamben 1 SPRAY AEROSOL MM ONE (17:31)
[2019-03-29] MEDS ORDERED: Topiramate 25 MG TABLET PO SCH (21:00)
[2019-03-30] MEDS: Ondansetron 4 MG/2 ML VIAL IVP PRN (02:24)
[2019-03-30] MEDS ORDERED: Acetaminophen 325 MG TABLET PO ONE (03:19)
[2019-03-30] MEDS: *HR* Heparin 5,000 UNIT/ML VIAL SQ SCH (05:41)
[2019-03-30 07:46] VITALS: BP 110/71
[2019-03-30] MEDS ORDERED: Loratadine 10 MG TABLET PO SCH (09:00)
[2019-03-30] MEDS: Pantoprazole 40 MG VIAL IVP SCH (09:14)
== END 2019-03-30 17:07 | disposition home or self-care (01) ==
LOC: EMEROOARM 13:35 → 3BNU 13:35 → SUATTDRO 17:47 → 3BNU 18:34
PROVIDERS: ADMIT Student in an Organized Health Care Education/Training Program; ATTEND Student in an Organized Health Care Education/Training Program
PROC: ENDOEBX (2019-03-29 14:30)

== ENCOUNTER 2019-06-15 11:01 | Observation (INO) ==
[2019-06-15] MEDS ORDERED: Aspirin 81 MG TAB.CHEW PO ONE (11:08)
[2019-06-15 12:02] LABS: Basophils % 0.4 %; Hemoglobin 13.4 g/dL (11.5-15.4); Lymphocytes % 32.9 %; Red Cell Distribution Width 15.1 % (11.5-14.5)
[2019-06-15 12:04] LABS: Hematocrit 43.1 % (35.3-44.9); Immature Granulocytes % 0.2 % (0-4); Lymphocytes # 1.8 K/mcL (0.6-4.6); Mean Corpuscular HGB Conc 31.1 g/dL (31.6-35.5); Mean Corpuscular Hemoglobin 24.6 pg (28.0-33.3); Mean Corpuscular Volume 79.1 fL (83.0-100.0); Mean Platelet Volume 12.7 fL (9.4-12.4); Monocytes # 0.3 K/mcL (0.0-1.3); Monocytes % 5.5 %; Neutrophils # 3.3 K/mcL (1.6-8.9); Platelet Count 108 K/mcL (140-400); Red Blood Count 5.45 M/mcL (3.82-4.97); White Blood Count 5.4 K/mcL (4.3-11.1)
[2019-06-15] MEDS: Nitroglycerin 0.4 MG TAB.SUBL SL PRN ×2 (12:11→12:33)
[2019-06-15 12:24] LABS: BUN/Creatinine Ratio 19 (6-26); Blood Urea Nitrogen 12 mg/dL (8-23); Calcium 8.8 mg/dL (8.6-10.3); Carbon Dioxide 20 mEq/L (23-29); Chloride 111 mEq/L (98-107); Glucose 100 mg/dL (70-105); Osmolality,Calculated 288 (280-300); Potassium 4.6 mEq/L (3.5-5.1); Sodium 139 mEq/L (136-145); Troponin I < 0.03 ng/mL (< 0.04); eGFR For African Americans > 60 (> 60); eGFR For Non-African Americans > 60 (> 60)
[2019-06-15 12:44] LABS: Activated Partial Thrombo Time 29.3 Seconds (26.0-36.0); INR 0.9; Prothrombin Time 10.4 Seconds (9.4-12.1)
[2019-06-15] MEDS ORDERED: Isovue-370 500 ML BOTTLE IVP ONE (13:20)
[2019-06-15] MEDS ORDERED: *HR* HYDROcodone/Acet 5/325 mg TABLET PO ONE (13:22)
[2019-06-15] MEDS ORDERED: SUMAtriptan succinate 25 MG TABLET PO PRN (15:37)
[2019-06-15] MEDS ORDERED: MOM Conc 10 ML UD.LIQ PO PRN (15:38)
[2019-06-15] MEDS ORDERED: Naloxone 0.4 MG/ML INJ IVP PRN (15:38)
[2019-06-15] MEDS ORDERED: *HR* Promethazine 25 MG/ML VIAL IVP PRN (15:38)
[2019-06-15] MEDS ORDERED: Mag Hydrox/Al Hydrox/Simeth 30 ML UDC PO PRN (15:38)
[2019-06-15] MEDS: Ondansetron 4 MG/2 ML VIAL IVP PRN (18:45)
[2019-06-15] MEDS: Topiramate 25 MG TABLET PO SCH (21:12)
[2019-06-15] MEDS: Loratadine 10 MG TABLET PO SCH (21:12)
[2019-06-15] MEDS: ALPRAZolam 1 MG TABLET PO PRN (21:12)
[2019-06-15] MEDS: Acetaminophen 325 MG TABLET PO PRN (21:20)
[2019-06-16 05:51] LABS: Basophils % 0.6 %; Eosinophils % 0.2 %; Hematocrit 39.5 % (35.3-44.9); Immature Granulocytes % 0.2 % (0-4); Lymphocytes # 2.1 K/mcL (0.6-4.6); Lymphocytes % 44.6 %; Mean Corpuscular HGB Conc 30.4 g/dL (31.6-35.5); Mean Corpuscular Hemoglobin 25.4 pg (28.0-33.3); Mean Corpuscular Volume 83.5 fL (83.0-100.0); Mean Platelet Volume 12.9 fL (9.4-12.4); Monocytes # 0.4 K/mcL (0.0-1.3); Monocytes % 8.2 %; Neutrophils # 2.2 K/mcL (1.6-8.9); Platelet Count 115 K/mcL (140-400); Red Blood Count 4.73 M/mcL (3.82-4.97); Red Cell Distribution Width 15.1 % (11.5-14.5); Segmented Neutrophils % 46.2 %; White Blood Count 4.7 K/mcL (4.3-11.1)
[2019-06-16 06:14] LABS: Alanine Aminotransferase 22 Units/L (7-52); Albumin 3.7 g/dL (3.5-5.7); Albumin/Globulin Ratio 1.8 (1.1-2.2); Alkaline Phosphatase 89 Units/L (34-104); Aspartate Amino Transferase 19 Units/L (13-39); BUN/Creatinine Ratio 16 (6-26); Bilirubin,Total 0.2 mg/dL (0.3-1.0); Blood Urea Nitrogen 15 mg/dL (8-23); Calcium 8.7 mg/dL (8.6-10.3); Carbon Dioxide 27 mEq/L (23-29); Chloride 108 mEq/L (98-107); Globulin 2.1 g/dL (2.4-3.5); Glucose 114 mg/dL (70-105); Osmolality,Calculated 298 (280-300); Potassium 4.4 mEq/L (3.5-5.1); Sodium 143 mEq/L (136-145); Total Protein 5.8 g/dL (6.4-8.9); eGFR For African Americans > 60 (> 60); eGFR For Non-African Americans > 60 (> 60)
[2019-06-16] MEDS: Aspirin Enteric Coated 81 MG Tablet PO SCH (08:38)
[2019-06-16] MEDS: Acetaminophen 325 MG TABLET PO PRN ×2 (08:40→16:37)
[2019-06-16] MEDS: Ondansetron 4 MG/2 ML VIAL IVP PRN ×2 (08:40→16:45)
[2019-06-16] MEDS: *HR* Heparin 5,000 UNIT/ML VIAL SQ SCH (16:37)
[2019-06-16] MEDS: Loratadine 10 MG TABLET PO SCH (20:31)
[2019-06-16] MEDS: Topiramate 25 MG TABLET PO SCH (20:32)
[2019-06-16] MEDS: ALPRAZolam 1 MG TABLET PO PRN (20:38)
[2019-06-17] MEDS: Ondansetron 4 MG/2 ML VIAL IVP PRN ×2 (01:16→21:32)
[2019-06-17 04:48] LABS: Basophils % 0.4 %; Hematocrit 41.4 % (35.3-44.9); Hemoglobin 12.4 g/dL (11.5-15.4); Immature Granulocytes % 0.2 % (0-4); Lymphocytes # 2.1 K/mcL (0.6-4.6); Lymphocytes % 45.3 %; Mean Corpuscular Volume 83.5 fL (83.0-100.0); Mean Platelet Volume 12.3 fL (9.4-12.4); Monocytes # 0.3 K/mcL (0.0-1.3); Monocytes % 7.4 %; Neutrophils # 2.1 K/mcL (1.6-8.9); Platelet Count 110 K/mcL (140-400); Red Blood Count 4.96 M/mcL (3.82-4.97); Red Cell Distribution Width 14.9 % (11.5-14.5); Segmented Neutrophils % 46.7 %; White Blood Count 4.6 K/mcL (4.3-11.1)
[2019-06-17 05:03] LABS: BUN/Creatinine Ratio 20 (6-26); Blood Urea Nitrogen 15 mg/dL (8-23); Calcium 8.9 mg/dL (8.6-10.3); Carbon Dioxide 26 mEq/L (23-29); Chloride 109 mEq/L (98-107); Glucose 98 mg/dL (70-105); Osmolality,Calculated 289 (280-300); Potassium 4.4 mEq/L (3.5-5.1); Sodium 139 mEq/L (136-145); eGFR For African Americans > 60 (> 60); eGFR For Non-African Americans > 60 (> 60)
[2019-06-17] MEDS: *HR* Heparin 5,000 UNIT/ML VIAL SQ SCH ×2 (05:19→17:11)
[2019-06-17] MEDS: Aspirin Enteric Coated 81 MG Tablet PO SCH (08:14)
[2019-06-17] MEDS: Acetaminophen 325 MG TABLET PO PRN ×2 (12:17→21:32)
[2019-06-17] MEDS ORDERED: 0.9 % Sodium Chloride 2,000 ML ONE (15:50)
[2019-06-17] MEDS ORDERED: *HR* Heparin 10,000 UNIT/10 ML VIAL ONE (15:51)
[2019-06-17] MEDS ORDERED: ISOVUE-370 200 ML INFUS..BTL ONE (15:51)
[2019-06-17] MEDS ORDERED: Heparin 1,000 UNITS/500 mL 500 ML ONE (15:51)
[2019-06-17] MEDS ORDERED: Nitroglycerin 1,000 MCG/10 ML VIAL IV ONE (15:51)
[2019-06-17] MEDS ORDERED: *HR* Midazolam HCl 2 MG/2 ML VIAL ONE (16:02)
[2019-06-17] MEDS ORDERED: *HR* FentaNYL (PF) 100 MCG/2 ML VIAL ONE (16:03)
[2019-06-17] MEDS: Topiramate 25 MG TABLET PO SCH (21:26)
[2019-06-17] MEDS: Loratadine 10 MG TABLET PO SCH (21:26)
[2019-06-17] MEDS: ALPRAZolam 1 MG TABLET PO PRN (21:27)
[2019-06-18 04:47] LABS: Basophils % 0.6 %; Eosinophils % 0.2 %; Hematocrit 41.6 % (35.3-44.9); Hemoglobin 12.5 g/dL (11.5-15.4); Immature Granulocytes % 0.4 % (0-4); Lymphocytes # 1.8 K/mcL (0.6-4.6); Lymphocytes % 33.7 %; Mean Corpuscular Hemoglobin 25.1 pg (28.0-33.3); Mean Corpuscular Volume 83.4 fL (83.0-100.0); Mean Platelet Volume 12.6 fL (9.4-12.4); Monocytes # 0.3 K/mcL (0.0-1.3); Monocytes % 6.4 %; Neutrophils # 3.1 K/mcL (1.6-8.9); Platelet Count 121 K/mcL (140-400); Red Blood Count 4.99 M/mcL (3.82-4.97); Red Cell Distribution Width 14.9 % (11.5-14.5); Segmented Neutrophils % 58.7 %; White Blood Count 5.3 K/mcL (4.3-11.1)
[2019-06-18 05:07] LABS: BUN/Creatinine Ratio 24 (6-26); Blood Urea Nitrogen 15 mg/dL (8-23); Calcium 8.9 mg/dL (8.6-10.3); Carbon Dioxide 24 mEq/L (23-29); Chloride 107 mEq/L (98-107); Glucose 124 mg/dL (70-105); Osmolality,Calculated 286 (280-300); Potassium 4.1 mEq/L (3.5-5.1); Sodium 137 mEq/L (136-145); eGFR For African Americans > 60 (> 60); eGFR For Non-African Americans > 60 (> 60)
[2019-06-18] MEDS: *HR* Heparin 5,000 UNIT/ML VIAL SQ SCH (05:48)
[2019-06-18] MEDS: Aspirin Enteric Coated 81 MG Tablet PO SCH (10:05)
[2019-06-18 11:01] VITALS: BP 100/54
== END 2019-06-18 14:15 | disposition home or self-care (01) ==
LOC: 3BNU 11:01 → EMEROOARM 11:01 → 3BNU 16:29
PROVIDERS: ADMIT Internal Medicine; ATTEND Internal Medicine

== ENCOUNTER 2020-12-30 19:06 | Observation (INO) ==
[2020-12-30] MEDS: *HR* HYDROcodone/Acet 5/325 mg TABLET PO PRN (21:42)
[2020-12-30 22:14] LABS: Basophils % 0.3 %; Hemoglobin 13.4 g/dL (11.5-15.4); Mean Corpuscular HGB Conc 31.5 g/dL (31.6-35.5); Red Cell Distribution Width 14.6 % (11.5-14.5)
[2020-12-30 22:15] LABS: Eosinophils % 0.1 %; Hematocrit 42.5 % (35.3-44.9); Immature Granulocytes % 0.2 % (0-4); Immature Platelets 16.1 % (1.1-6.1); Lymphocytes # 2.5 K/mcL (0.6-4.6); Lymphocytes % 27.1 %; Mean Corpuscular Hemoglobin 25.2 pg (28.0-33.3); Mean Platelet Volume 12.8 fL (9.4-12.4); Monocytes # 0.5 K/mcL (0.0-1.3); Monocytes % 4.9 %; Neutrophils # 6.1 K/mcL (1.6-8.9); Platelet Count 120 K/mcL (140-400); Red Blood Count 5.31 M/mcL (3.82-4.97); Segmented Neutrophils % 67.4 %; White Blood Count 9.1 K/mcL (4.3-11.1)
[2020-12-30 22:33] LABS: Alanine Aminotransferase 12 Units/L (7-52); Albumin 4.1 g/dL (3.5-5.7); Albumin/Globulin Ratio 1.5 (1.1-2.2); Alkaline Phosphatase 97 Units/L (34-104); Aspartate Amino Transferase 14 Units/L (13-39); BUN/Creatinine Ratio 17 (6-26); Bilirubin,Total 0.5 mg/dL (0.3-1.0); Blood Urea Nitrogen 13 mg/dL (8-23); Calcium 9.5 mg/dL (8.6-10.3); Carbon Dioxide 25 mEq/L (23-29); Chloride 108 mEq/L (98-107); Globulin 2.7 g/dL (2.4-3.5); Glucose 99 mg/dL (70-105); Osmolality,Calculated 294 (280-300); Potassium 3.5 mEq/L (3.5-5.1); Sodium 142 mEq/L (136-145); Total Protein 6.8 g/dL (6.4-8.9); eGFR For African Americans > 60 (> 60); eGFR For Non-African Americans > 60 (> 60)
[2020-12-30 22:34] LABS: Troponin I < 0.03 ng/mL (< 0.04)
[2020-12-30] MEDS ORDERED: Isovue-370 500 ML BOTTLE IVP ONE (22:39)
[2020-12-30 22:43] LABS: Reactive Lymphocytes Present (Not Present)
[2020-12-30 23:20] LABS: Adenovirus Not Detected (Not Detect); Bordetella Pertussis Not Detected (Not Detect); Chlamydophila pneumoniae Not Detected (Not Detect); Coronavirus 229E Not Detected (Not Detect); Coronavirus HKU1 Not Detected (Not Detect); Coronavirus NL63 Not Detected (Not Detect); Coronavirus OC43 Not Detected (Not Detect); Human Metapneumovirus Not Detected (Not Detect); Human Rhinovirus/Enterovirus Not Detected (Not Detect); Influenza A Subtype 2009 H1 Not Detected (Not Detect); Influenza B Not Detected (Not Detect); Mycoplasma pneumoniae Not Detected (Not Detect); Parainfluenza Virus 1 Not Detected (Not Detect); Parainfluenza Virus 2 Not Detected (Not Detect); Parainfluenza Virus 3 Not Detected (Not Detect); Parainfluenza Virus 4 Not Detected (Not Detect); Respiratory Syncytial Virus Not Detected (Not Detect); SARS-CoV-2 Not Detected (Not Detect)
[2020-12-31 01:05] LABS: INR 1.1; Prothrombin Time 12.4 Seconds (9.4-12.1)
[2020-12-31 01:08] LABS: Activated Partial Thrombo Time 30.7 Seconds (26.0-36.0)
[2020-12-31] MEDS ORDERED: Naloxone 0.4 MG/ML INJ IVP PRN (02:29)
[2020-12-31] MEDS ORDERED: Ondansetron 4 MG/2 ML VIAL IVP PRN (02:29)
[2020-12-31] MEDS ORDERED: 0.9 % Sodium Chloride 1,000 ML IVC SCH (02:30)
[2020-12-31 04:54] LABS: Red Cell Distribution Width 14.6 % (11.5-14.5)
[2020-12-31 04:56] LABS: Hematocrit 40.8 % (35.3-44.9); Hemoglobin 12.7 g/dL (11.5-15.4); Mean Corpuscular HGB Conc 31.1 g/dL (31.6-35.5); Mean Corpuscular Hemoglobin 24.9 pg (28.0-33.3); Mean Corpuscular Volume 79.8 fL (83.0-100.0); Mean Platelet Volume 12.9 fL (9.4-12.4); Red Blood Count 5.11 M/mcL (3.82-4.97); White Blood Count 6.6 K/mcL (4.3-11.1)
[2020-12-31 05:12] LABS: BUN/Creatinine Ratio 19 (6-26); Blood Urea Nitrogen 15 mg/dL (8-23); Calcium 9.1 mg/dL (8.6-10.3); Carbon Dioxide 25 mEq/L (23-29); Chloride 108 mEq/L (98-107); Glucose 134 mg/dL (70-105); Osmolality,Calculated 293 (280-300); Potassium 3.5 mEq/L (3.5-5.1); Sodium 140 mEq/L (136-145); eGFR For African Americans > 60 (> 60); eGFR For Non-African Americans > 60 (> 60)
[2020-12-31] MEDS ORDERED: Azithromycin 250 MG TABLET PO SCH (05:30)
[2020-12-31] MEDS: *HR* HYDROcodone/Acet 5/325 mg TABLET PO PRN ×2 (11:01→20:05)
[2020-12-31] MEDS ORDERED: Ipratropium/Albuterol Neb 3 ML ONE (11:23)
[2020-12-31] MEDS ORDERED: *HR* Dextrose 50 % in Water (Vial) 50 ML VIAL IVP PRN (11:24)
[2020-12-31] MEDS ORDERED: Dextrose Gel 15 GM/37.5 ML TUBE PO PRN ×2 (11:24)
[2020-12-31] MEDS ORDERED: D5% in Water 1,000 ML IVC PRN (11:24)
[2020-12-31] MEDS: Budesonide/Formoterol 160/4.5 1 PUFF INH IH SCH ×2 (11:32→21:38)
[2020-12-31] MEDS: Ipratropium/Albuterol Neb 3 ML IH SCH ×3 (11:32→21:38)
[2020-12-31] MEDS: Insulin LISPRO 300 UNITS/3 ML VIAL SUBQ SCH ×2 (11:52→15:50)
[2020-12-31] MEDS ORDERED: cefTRIAXone 1,000 MG in Water for inj. (sterile) 10 ML IVP SCH (12:00)
[2020-12-31] MEDS: levoFLOXacin 750 MG/150 ML 750 MG/150 ML BAG IVPB SCH (13:44)
[2020-12-31] MEDS: predniSONE 20 MG TABLET PO SCH (16:21)
[2021-01-01] MEDS: ALPRAZolam 1 MG TABLET PO PRN ×2 (00:19→13:33)
[2021-01-01] MEDS: Ipratropium/Albuterol Neb 3 ML IH SCH ×4 (03:37→22:17)
[2021-01-01 06:34] LABS: Hematocrit 42.5 % (35.3-44.9); Mean Corpuscular HGB Conc 30.6 g/dL (31.6-35.5); Mean Corpuscular Hemoglobin 24.8 pg (28.0-33.3); Mean Platelet Volume 13.3 fL (9.4-12.4); Platelet Count 110 K/mcL (140-400); Red Blood Count 5.25 M/mcL (3.82-4.97); Red Cell Distribution Width 14.3 % (11.5-14.5); White Blood Count 7.4 K/mcL (4.3-11.1)
[2021-01-01 06:49] LABS: BUN/Creatinine Ratio 20 (6-26); Blood Urea Nitrogen 14 mg/dL (8-23); Calcium 9.2 mg/dL (8.6-10.3); Carbon Dioxide 23 mEq/L (23-29); Chloride 108 mEq/L (98-107); Glucose 199 mg/dL (70-105); Osmolality,Calculated 294 (280-300); Potassium 4.1 mEq/L (3.5-5.1); Sodium 139 mEq/L (136-145); eGFR For African Americans > 60 (> 60); eGFR For Non-African Americans > 60 (> 60)
[2021-01-01] MEDS: Insulin LISPRO 300 UNITS/3 ML VIAL SUBQ SCH ×3 (08:06→16:43)
[2021-01-01] MEDS: predniSONE 20 MG TABLET PO SCH ×2 (08:12→16:31)
[2021-01-01] MEDS: Aspirin Enteric Coated 81 MG Tablet PO SCH (08:12)
[2021-01-01] MEDS: Budesonide/Formoterol 160/4.5 1 PUFF INH IH SCH ×2 (09:39→22:17)
[2021-01-01] MEDS: levoFLOXacin 750 MG/150 ML 750 MG/150 ML BAG IVPB SCH (13:18)
[2021-01-01] MEDS: *HR* HYDROcodone/Acet 5/325 mg TABLET PO PRN ×2 (16:36→23:41)
[2021-01-01] MEDS: Loratadine 10 MG TABLET PO SCH (19:58)
[2021-01-01] MEDS: Sennosides/Docusate Sodium TABLET PO PRN (19:58)
[2021-01-01] MEDS: Pregabalin 75 MG CAPSULE PO SCH (19:58)
[2021-01-02] MEDS: ALPRAZolam 1 MG TABLET PO PRN ×2 (02:17→15:46)
[2021-01-02] MEDS: Ipratropium/Albuterol Neb 3 ML IH SCH ×4 (03:33→22:23)
[2021-01-02] MEDS: *HR* HYDROcodone/Acet 5/325 mg TABLET PO PRN ×2 (06:07→20:00)
[2021-01-02 06:50] LABS: Hematocrit 41.3 % (35.3-44.9); Hemoglobin 12.7 g/dL (11.5-15.4); Immature Platelets 17.8 % (1.1-6.1); Mean Corpuscular HGB Conc 30.8 g/dL (31.6-35.5); Mean Corpuscular Volume 81.1 fL (83.0-100.0); Mean Platelet Volume 13.4 fL (9.4-12.4); Red Blood Count 5.09 M/mcL (3.82-4.97); Red Cell Distribution Width 14.3 % (11.5-14.5); White Blood Count 8.9 K/mcL (4.3-11.1)
[2021-01-02 06:57] LABS: BUN/Creatinine Ratio 19 (6-26); Blood Urea Nitrogen 15 mg/dL (8-23); Calcium 8.8 mg/dL (8.6-10.3); Carbon Dioxide 20 mEq/L (23-29); Chloride 106 mEq/L (98-107); Glucose 313 mg/dL (70-105); Osmolality,Calculated 293 (280-300); Potassium 4.2 mEq/L (3.5-5.1); Sodium 135 mEq/L (136-145); eGFR For African Americans > 60 (> 60); eGFR For Non-African Americans > 60 (> 60)
[2021-01-02] MEDS: predniSONE 20 MG TABLET PO SCH ×2 (07:58→16:42)
[2021-01-02] MEDS: Insulin LISPRO 300 UNITS/3 ML VIAL SUBQ SCH ×3 (07:59→16:42)
[2021-01-02] MEDS: Pregabalin 75 MG CAPSULE PO SCH ×2 (09:01→19:59)
[2021-01-02] MEDS: Aspirin Enteric Coated 81 MG Tablet PO SCH (09:02)
[2021-01-02] MEDS: Budesonide/Formoterol 160/4.5 1 PUFF INH IH SCH ×2 (09:32→22:23)
[2021-01-02] MEDS: Sennosides/Docusate Sodium TABLET PO PRN (11:49)
[2021-01-02] MEDS: levoFLOXacin 750 MG TABLET PO SCH (13:28)
[2021-01-02] MEDS: polyethylene glycoL 3350 17 GM POWD.PACK PO SCH (14:26)
[2021-01-02] MEDS: Loratadine 10 MG TABLET PO SCH (20:00)
[2021-01-03] MEDS: Ipratropium/Albuterol Neb 3 ML IH SCH ×3 (03:33→15:20)
[2021-01-03 04:50] LABS: Hematocrit 44.6 % (35.3-44.9); Hemoglobin 13.9 g/dL (11.5-15.4); Immature Platelets 15.2 % (1.1-6.1); Mean Corpuscular HGB Conc 31.2 g/dL (31.6-35.5); Mean Corpuscular Hemoglobin 25.1 pg (28.0-33.3); Mean Corpuscular Volume 80.7 fL (83.0-100.0); Mean Platelet Volume 13.1 fL (9.4-12.4); Red Blood Count 5.53 M/mcL (3.82-4.97); Red Cell Distribution Width 14.4 % (11.5-14.5); White Blood Count 9.2 K/mcL (4.3-11.1)
[2021-01-03 05:03] LABS: BUN/Creatinine Ratio 31 (6-26); Blood Urea Nitrogen 24 mg/dL (8-23); Calcium 9.5 mg/dL (8.6-10.3); Carbon Dioxide 21 mEq/L (23-29); Chloride 105 mEq/L (98-107); Glucose 259 mg/dL (70-105); Osmolality,Calculated 293 (280-300); Potassium 4.6 mEq/L (3.5-5.1); Sodium 135 mEq/L (136-145); eGFR For African Americans > 60 (> 60); eGFR For Non-African Americans > 60 (> 60)
[2021-01-03] MEDS: Aspirin Enteric Coated 81 MG Tablet PO SCH (08:16)
[2021-01-03] MEDS: polyethylene glycoL 3350 17 GM POWD.PACK PO SCH (08:16)
[2021-01-03] MEDS: predniSONE 20 MG TABLET PO SCH ×2 (08:17→16:49)
[2021-01-03] MEDS: Pregabalin 75 MG CAPSULE PO SCH (08:17)
[2021-01-03] MEDS: Insulin LISPRO 300 UNITS/3 ML VIAL SUBQ SCH ×3 (08:18→16:51)
[2021-01-03] MEDS: Budesonide/Formoterol 160/4.5 1 PUFF INH IH SCH (10:09)
[2021-01-03] MEDS: *HR* HYDROcodone/Acet 5/325 mg TABLET PO PRN (13:02)
[2021-01-03 15:02] VITALS: BP 106/73; PULSE 96; TEMP 97.8
[2021-01-03 16:07] VITALS: O2SAT 94
[2021-01-03] MEDS: levoFLOXacin 750 MG TABLET PO SCH (16:49)
[2021-01-06 19:25] LABS: ANCA IFA Titer <1:20 (<1:20)
[2021-01-07 09:59] LABS: ANCA IFA Pattern NONE DETECTED (None Detected); Serine Protease-3 Antibody 5 AU/mL (0-19)
== END 2021-01-03 17:33 | disposition home or self-care (01) ==
LOC: 3ANU 19:06 → EMEROOARM 19:06 → SUATTDRO 12-31 02:43 → 3ANU 12-31 03:56
PROVIDERS: ADMIT Internal Medicine; ATTEND Internal Medicine